=== PATIENT | female | born 1990 | race Hispanic/Latino ===

== ENCOUNTER 2019-12-14 11:17 | Emergency (ER) | payer SELFPAY ==
--- OUTSIDE RECORDS SUMMARY | 2019-12-14 11:19 | XMS REPORT ---
:1990 [facility] Address [address] [place] [address] [address]. [address]. [address] [place] [address] Care Team Providers Name Role Phone Unavailable Unavailable Unavailable Problems This patient has no known problems. Allergies, Adverse Reactions, Alerts This patient has no known allergies or adverse reactions. Medications This patient has no known medications.
--- OUTSIDE RECORDS SUMMARY | 2019-12-14 11:20 | XMS REPORT | Summary of Care ---
:1990 Author Organization [facility] Address [address] [place] [id number] Care Team Providers Name Role Phone Stacy Ceja Primary Care Provider Reason for Visit Reason Comments Care Encounter Details Date Type Department Care Team Description [facility] [facility] High-risk in third trimester (Primary Dx); Visit HANNAH Jacobo Multiparity; [address] Tubal ligation evaluation; [place], [place] Keith A Breech presentation, single or unspecified fetus [id number] [place], [place] [phone] [id number] Allergies No Known Allergiesdocumented as of this encounter (statuses as of 06/30/2019) Medications Medication Sig Dispensed Refills Start Date End Date Status vit Take 1 Packet by 30 Each 6 06/10/2019 Active 51-cqdm-xcpim-dha mouth daily. (SELECT-OB + DHA) 29 mg iron-1 mg -250 mg combo packIndications: High-risk in third trimester documented as of this encounter (statuses as of 06/30/2019) Active Problems Problem Noted Date Breech presentation 06/23/2019 Overview: At 35 weeks High-risk in third trimester 05/13/2019 Insufficient care in second trimester 05/13/2019 BMI 25.0-25.9,adult 05/13/2019 Multiparity 05/13/2019 Tubal ligation evaluation 05/13/2019 Estimated Date of Delivery Comments Yes 07/28/2019 Based on last menstrual period of 10/21/2018 (Exact Date) documented as of this encounter (statuses as of 06/30/2019) Resolved Problems Problem Noted Date Resolved Date Need for sjzxyqjgjk-eoxmixp-dsidkuqsg (Tdap) vaccine 05/13/2019 05/13/2019 documented as of this encounter (statuses as of 06/30/2019) Immunizations Name Administration Dates Next Due TDAP (ADACEL) VACCINE 05/13/2019 documented as of this encounter Social History Tobacco Use Types Packs/Day Years Used Date Never Smoker Smokeless Tobacco: Never Used Alcohol Use Drinks/Week oz/Week Comments Never Alcohol Habits Answer Date Recorded How often do you have a drink containing alcohol? Never 05/13/2019 How many drinks containing alcohol do you have on a typical Not asked day when you are drinking? How often do you have six or more drinks on one occasion? Not asked Estimated Date of Delivery Comments Yes 07/28/2019 Based on last menstrual period of 10/21/2018 (Exact Date) Sex Assigned at Date Recorded Not on file Job Start Date Occupation Industry Not on file Not on file Not on file Travel History Travel Start Travel End No recent travel history available. documented as of this encounter Last Filed Vital Signs Vital Sign Reading Time Taken Comments Blood Pressure 98/62 06/30/2019 9:43 AM CDT Pulse 62 06/30/2019 9:43 AM CDT Temperature 36.7 C (98.1 F) 06/30/2019 9:43 AM CDT Respiratory Rate 16 06/30/2019 9:43 AM CDT Oxygen Saturation - - Inhaled Oxygen Concentration - - Weight 60.1 kg (132 lb 9 oz) 06/30/2019 9:43 AM CDT Height 149.9 cm (4' 11") 06/30/2019 9:43 AM CDT Body Mass Index 26.77 06/30/2019 9:43 AM CDT documented in this encounter Progress Notes Stacy Ceja, PROJECT RESERVOIR ENGINEER - 06/30/2019 9:30 AM CDT Chief complaint: Chief Complaint Patient presents with Care HPI Dot Toro is a 29 year old female is a @ 36w0d here for visit. Patient's last menstrual period was 10/21/2018 (exact date). Estimated Date of Delivery: 07/28/19 Today she denies any complaints or concerns. She is taking PNV. She reports good FM. She denies any ctx/cramping, VB, LOF, SINGH , visual disturbance, vaginal discharge or dysuria. She denies any foreign travel. She also denies any physical, sexual or emotional abuse. Histories OB History Para Term AB Living 4 2 2 1 2 SAB TAB Ectopic Multiple Live Births 1 2 # Outcome Date GA Lbr [place]/2nd Weight Sex Delivery Anes PTL Lv 4 Current 3 Term 06/08/14 40w0d F VAGINAL FRANTZ 2 Term 06/01/10 40w0d F VAGINAL FRANTZ 1 SAB No past medical history on file. Family History Problem Relation Age of Onset No Significant Medical Problems Mother No Significant Medical Problems Father No Significant Medical Problems Sister No Significant Medical Problems Brother Diabetes Maternal Aunt Diabetes Maternal Uncle Diabetes Paternal Aunt Diabetes Paternal Uncle Cancer Maternal Grandmother Cancer Maternal Grandfather lung Family Status Relation Name Status Mo Alive Fa Alive Sis Alive Bro Alive MAunt Alive MUnc Alive PAunt Alive PUnc Alive MGMo MGFa PGMo PGFa No past surgical history on file. Social History Socioeconomic History Marital status: Spouse name: Not on file Number of children: Not on file Years of education: Not on file Highest education level: Not on file Occupational History Not on file Social Needs Financial resource strain: Not on file Food insecurity: Worry: Not on file Inability: Not on file Transportation needs: Medical: Not on file Non-medical: Not on file Tobacco Use Smoking status: Never Smoker Smokeless tobacco: Never Used Substance and Sexual Activity Alcohol use: Never Frequency: Never Drug use: Never Sexual activity: Yes Partners: Male control/protection: None Comment: last sexual intercourse 04/29/2019 Lifestyle Physical activity: Days per week: Not on file Minutes per session: Not on file Stress: Not on file Relationships Social connections: Talks on phone: Not on file Gets together: Not on file Attends sikh service: Not on file Active member of club or organization: Not on file Attends meetings of clubs or organizations: Not on file Relationship status: Not on file Intimate partner violence: Fear of current or ex partner: Not on file Emotionally abused: Not on file Physically abused: Not on file Forced sexual activity: Not on file Other Topics Concern Not on file Social History Narrative Rastafarian preference is Mandaen. Patient lives with and children. Social History Substance and Sexual Activity Sexual Activity Yes Partners: Male control/protection: None Comment: last sexual intercourse 04/29/2019 Labs I have reviewed the patient's labs. and Labs are pending. Radiology No new radiology. Allergies Dot has No Known Allergies. Medications Dot has a current medication list which includes the following prescription(s): vit 85-nxxs-qdtsf-dha. Review of Systems Constitutional: Negative for appetite change, fatigue and fever. Eyes: Negative for visual disturbance. Respiratory: Negative. Cardiovascular: Negative for palpitations and leg swelling. Gastrointestinal: Negative for abdominal pain, constipation, diarrhea, nausea and vomiting. Genitourinary: Negative. Negative for dysuria, vaginal bleeding, vaginal discharge and pelvic pain. Musculoskeletal: Negative. Skin: Negative for rash. Neurological: Negative for dizziness, light-headedness and headaches. Psychiatric/Behavioral: Negative. BP 98/62 (BP Location: Right arm, Patient Position: Sitting, BP CUFF SIZE: Adult Small) | Pulse 62| Temp 36.7 C (98.1 F) (Oral) | Resp 16 | Ht 4' 11 " (1.499 m) | Wt 132 lb 9 oz (60.1 kg) | LMP 10/21/2018 (Exact Date) | BMI 26.77 kg/m Pregravid BMI: 22.0 Physical Exam Vitals reviewed. Constitutional: She is oriented to person, place, and time. She appears well- developed and well-nourished. See flowsheet Cardiovascular: No peripheral edema present. Pulmonary/Chest: Normal inspiratory effort. Abdominal: Abdomen is soft. Neuro/Psychiatric: She has a normal mood and affect. She is oriented to person, place, and time. Skin: Skin normal. Assessment/Plan 1. High-risk in third trimester 36w0d Labor precautions, FKC and PIH warnings reviewed. 36 week labs today - GROUP B STREPTOCOCCUS BY PCR - CBC WITH DIFF - CBC WITH DIFFERENTIAL - POCT URINALYSIS W SPECIFIC GRAVITY 2. Multiparity Desires BTL 3. Tubal ligation evaluation Consents signed 05/13/19 4. Breech presentation, single or unspecified fetus Now vertex on external exam and by bedside US Will cancel scheduled ECV and continue to monitor presentation. Return to clinic in 1 weeks. Reviewed patient instructions and provided printed copy. at 36w0d This visit did not involve counseling and coordination that comprised more than 50% of the visit time. documented in this encounter Plan of Treatment Date Type Specialty Care Team Description 07/07/2019 Routine Visit [facility] Satellites Stacy Ceja FNP [address] [place] [address] [phone] Name Type Priority Associated Diagnoses Date/Time CBC WITH DIFF LAB Routine High-risk in 06/30/2019 9:47 AM CDT third trimester CBC WITH DIFFERENTIAL LAB Routine High-risk in 06/30/2019 9:47 AM CDT third trimester Health Maintenance Due Date Last Done Comments INFLUENZA VACCINE 07/24/2019 PAP SMEAR 05/13/2022 05/13/2019 DTaP,Tdap,and Td Vaccines (2 - Td) 05/13/2029 05/13/2019 PNEUMOCOCCAL 0-64 YEARS COMBINED Aged Out No longer eligible based on SERIES patient's age to complete this topic documented as of this encounter Procedures Procedure Name Priority Date/Time Associated Diagnosis Comments POCT URINALYSIS Routine 06/30/2019 9:46 AM High-risk Results for this CDT in third trimester procedure are in the results section. documented in this encounter Results POCT URINALYSIS W SPECIFIC GRAVITY (06/30/2019 9:46 AM CDT) POCT U SP GRAV . 1.005 - 1.025 mg/dl POCT PH U . 5 - 8 mg/dl POCT U LEUK EST . Negative - Negative POCT U NIT . Negative - Negative POCT U PROT neg Negative - Negative POCT U GLU neg Negative - Negative POCT U KETONE . Negative - Negative POCT U UROBILI . 0.2 - 1 mg/dl POCT U BILI . Negative - Negative POCT U BLD . Negative - Negative POCT U COLOR . POCT U APPEAR Specimen Urine - URINE, CLEAN CATCH documented in this encounter Visit Diagnoses Diagnosis High-risk in third trimester - Primary Multiparity Tubal ligation evaluation Other specified pre-operative examination Breech presentation, single or unspecified fetus documented in this encounter Insurance Payer Benefit Plan / Subscriber ID Effective Dates Phone Address Type Group [facility] CHIP [id number] 2019-Present [facility] [phone] CHOICE documented as of this encounter
--- OUTSIDE RECORDS SUMMARY | 2019-12-14 11:20 | XMS REPORT | Summary of Care ---
:1990 Author Organization [facility] Address [address] [place] [id number] Care Team Providers Name Role Phone Stacy Ceja Primary Care Provider Reason for Visit Reason Comments Care Encounter Details Date Type Department Care Team Description [facility] High-risk in third trimester (Primary Dx); Visit HANNAH Jacobo Multiparity; [address] Tubal ligation evaluation [facility] [address] [place], [place] [phone] Allergies No Known Allergiesdocumented as of this encounter (statuses as of 07/07/2019) Medications Medication Sig Dispensed Refills Start Date End Date Status vit Take 1 Packet by 30 Each 6 06/10/2019 Active 98-xipm-sjacm-dha mouth daily. (SELECT-OB + DHA) 29 mg iron-1 mg -250 mg combo packIndications: High-risk in third trimester documented as of this encounter (statuses as of 07/07/2019) Active Problems Problem Noted Date Breech presentation 06/23/2019 Overview: At 35 weeks, vertex at 36 weeks High-risk in third trimester 05/13/2019 Insufficient care in second trimester 05/13/2019 BMI 25.0-25.9,adult 05/13/2019 Multiparity 05/13/2019 Tubal ligation evaluation 05/13/2019 Estimated Date of Delivery Comments Yes 07/28/2019 Based on last menstrual period of 10/21/2018 (Exact Date) documented as of this encounter (statuses as of 07/07/2019) Resolved Problems Problem Noted Date Resolved Date Need for tlebloqgss-qcschxu-suxjnhzju (Tdap) vaccine 05/13/2019 05/13/2019 documented as of this encounter (statuses as of 07/07/2019) Immunizations Name Administration Dates Next Due TDAP [...] Sign Reading Time Taken Comments Blood Pressure 92/58 07/07/2019 11:02 AM CDT Pulse 66 07/07/2019 11:02 AM CDT Temperature 36.9 C (98.5 F) 07/07/2019 11:02 AM CDT Respiratory Rate 16 07/07/2019 11:02 AM CDT Oxygen Saturation - - Inhaled Oxygen Concentration - - Weight 61.4 kg (135 lb 6 oz) 07/07/2019 11:02 AM CDT Height 149.9 cm (4' 11") 07/07/2019 11:02 AM CDT Body Mass Index 27.34 07/07/2019 11:02 AM CDT documented in this encounter Progress Notes Stacy Ceja, FOOD SERVICE ATTENDANT - 07/07/2019 10:45 AM CDT Chief complaint: Chief Complaint Patient presents with Care HPI Dot Toro is a 29 year old female is a @ 37w0d here for visit. Patient's last menstrual period [...] file Gets together: Not on file Attends temple service: Not on file Active member of [...] Concern Not on file Social History Narrative Bahai preference is Nondenominational. Patient lives with and children. Social History Substance and Sexual Activity Sexual Activity Yes Partners: Male control/protection: None Comment: last sexual intercourse 04/29/2019 Labs No new labs and I have reviewed the patient's labs. Radiology No new radiology. Allergies Dot has No Known Allergies. Medications Dot has a current medication list which includes the following prescription(s): vit 99-hhyv-nfxov-dha. Review of Systems Constitutional: Negative for appetite change, fatigue and fever. Eyes: Negative for visual disturbance. Respiratory: Negative. Cardiovascular: Negative for palpitations and leg swelling. Gastrointestinal: Negative for abdominal pain, constipation, diarrhea, nausea and vomiting. Genitourinary: Negative. Negative for dysuria, vaginal bleeding, vaginal discharge and pelvic pain. Musculoskeletal: Negative. Skin: Negative for rash. Neurological: Negative for dizziness, light-headedness and headaches. Psychiatric/Behavioral: Negative. BP 92/58 (BP Location: Right arm, Patient Position: Sitting, BP CUFF SIZE: Adult Small) | Pulse 66| Temp 36.9 C (98.5 F) (Oral) | Resp 16 | Ht 4' 11 " (1.499 m) | Wt 135 lb 6 oz (61.4 kg) | LMP 10/21/2018 (Exact Date) | BMI 27.34 kg/m Pregravid BMI: 22.0 Physical Exam Vitals reviewed. Constitutional: She is oriented to person, place, and time. She appears well- developed and well-nourished. See flowsheet Cardiovascular: No peripheral edema present. Pulmonary/Chest: Normal inspiratory effort. Abdominal: Abdomen is soft. Neuro/Psychiatric: She has a normal mood and affect. She is oriented to person, place, and time. Skin: Skin normal. Assessment/Plan 1. High-risk in third trimester 37w0d Labor precautions, FKC and PIH warnings reviewed. 40w IOL requested for 07/28/19 - POCT URINALYSIS W SPECIFIC GRAVITY 2. Multiparity Desires BTL 3. Tubal ligation evaluation Consents signed 05/13/19 Return to clinic in 1 weeks. Reviewed patient instructions and provided printed copy. at 37w0d This visit did not involve counseling and coordination that comprised more than 50% of the visit time. documented in this encounter Plan of Treatment Date Type Specialty Care Team Description 07/14/2019 Routine Visit OB Satellites Stacy Ceja, FOOD SERVICE ATTENDANT [address] [place] [address] [phone] Health Maintenance Due Date Last Done Comments INFLUENZA VACCINE (#1) 2019 PAP SMEAR 05/13/2022 05/13/2019 DTaP,Tdap,and Td Vaccines (2 - Td) 05/13/2029 05/13/2019 PNEUMOCOCCAL 0-64 YEARS COMBINED Aged Out No longer eligible based on SERIES patient's age to complete this topic documented as of this encounter Procedures Procedure Name Priority Date/Time Associated Diagnosis Comments POCT URINALYSIS Routine 07/07/2019 11:04 AM High-risk Results for this CDT in third trimester procedure are in the results section. documented in this encounter Results POCT URINALYSIS W SPECIFIC GRAVITY (07/07/2019 11:04 AM CDT) POCT U SP GRAV . [...] . Negative - Negative POCT U COLOR POCT U APPEAR Specimen Urine - URINE, CLEAN CATCH documented in this encounter Visit Diagnoses Diagnosis High-risk in third trimester - Primary Multiparity Tubal ligation evaluation Other specified pre-operative examination documented in this encounter Insurance Payer Benefit Plan / Subscriber ID Effective Dates Phone Address Type Group [facility] [facility] [id number] 2019-Present [facility] [phone] CHOICE documented as of this encounter
--- OUTSIDE RECORDS SUMMARY | 2019-12-14 11:20 | XMS REPORT | Summary of Care ---
:1990 Author Organization [facility] Address [address] [place] [address] Care Team Providers Name Role Phone Stacy Ceja Primary Care Provider Reason for Visit Reason Comments Care Encounter Details Date Type Department Care Team Description [facility] High-risk in third trimester (Primary Dx); Visit HANNAH Jacobo Insufficient care in second trimester; [address] Multiparity; [place], [place] Keith A Tubal ligation evaluation; [address] [place], [place] Breech presentation, single or unspecified fetus [phone] Allergies No Known Allergiesdocumented as of this encounter (statuses as of 06/23/2019) Medications Medication Sig Dispensed Refills Start Date End Date Status vit Take 1 Packet by 30 Each 6 06/10/2019 Active 53-skay-eauek-dha mouth daily. (SELECT-OB + DHA) 29 mg iron-1 mg -250 mg combo packIndications: High-risk in third trimester documented as of this encounter (statuses as of 06/23/2019) Active Problems Problem Noted Date Breech presentation 06/23/2019 Overview: At 35 weeks High-risk in third trimester 05/13/2019 Insufficient care in second trimester 05/13/2019 BMI 25.0-25.9,adult 05/13/2019 Multiparity 05/13/2019 Tubal ligation evaluation 05/13/2019 Estimated Date of Delivery Comments Yes 07/28/2019 Based on last menstrual period of 10/21/2018 (Exact Date) documented as of this encounter (statuses as of 06/23/2019) Resolved Problems Problem Noted Date Resolved Date Need for layfirpldf-ubzirat-ikxhrmcwg (Tdap) vaccine 05/13/2019 05/13/2019 documented as of this encounter (statuses as of 06/23/2019) Immunizations Name Administration Dates Next Due TDAP [...] Sign Reading Time Taken Comments Blood Pressure 110/68 06/23/2019 9:23 AM CDT Pulse 62 06/23/2019 9:23 AM CDT Temperature 37.1 C (98.8 F) 06/23/2019 9:23 AM CDT Respiratory Rate 18 06/23/2019 9:23 AM CDT Oxygen Saturation - - Inhaled Oxygen Concentration - - Weight 60.1 kg (132 lb 7 oz) 06/23/2019 9:23 AM CDT Height 149.9 cm (4' 11") 06/23/2019 9:23 AM CDT Body Mass Index 26.75 06/23/2019 9:23 AM CDT documented in this encounter Patient Instructions Patient InstructionsStacy Ceja FNP - 06/23/2019 9:15 AM CDT Presentacin de nalgas Si hay presentacin de nalgas, significa que tompkins beb tiene los glteos o los pies hacia abajo, cuando la posicin normal es con la noel hacia abajo. Selnia presentacin de nalgas puede hacer difcil que la noel del beb pase por el canal de parto simon el nacimiento. [place] puede ocasionar falta de oxgeno o ivory en los nervios del beb. Undercutter Operator determinar si el beb se presenta de nalgas? Tompkins mdico puede jersey si tompkins beb se presenta de nalgas presionando suavemente tompkins abdomen. Si, despus de la semana 35, tompkins beb no est todava de noel, puede que le delfin selina prueba llamada ultrasonido (ecografa). Esta prueba emplea ondas de shiva para formar selina imagen de tompkins beb en selina pantalla. Tipos de presentacin de nalgas A medida que se va acercando la fecha de parto, tompkins beb puede presentarse de nalgas en selina de las timbo posiciones siguientes: Liza de nalgas Los glteos del beb apuntan hacia el canal de parto. Las piernas se extienden hacia la noel. De nalgas completa El beb est sentado con las piernas cruzadas. Los glteos apuntan hacia abajo y las rodillas estn flexionadas. Tiene los pies metidos debajo de las piernas. Podlica El beb tiene taisha o ambos pies o piernas estirados dentro del canal de parto. Los glteos tambinapuntan hacia abajo. El nacimiento de tompkins beb Incluso si la posicin del beb no puede cambiarse, un beb que se presenta de nalgas en ocasiones puede nacer mediante parto vaginal aunque es poco frecuente. Tompkins mdico le hablar de los riesgos.Es ms frecuente que, en un hamilton as, se rj selina cesrea (parto mediante ciruga). Le administrarn anestesia (medicamento para bloquear el dolor). Sean usted permanecer despierta y alerta. Selina vez que haya nacido el beb Ya sea que haya tenido un parto vaginal o selina cesrea, seguramente, usted y tompkins beb estarn manolo.El solo hecho de que tompkins beb se presente de nalgas no significa que tendr problemas de dayron. Puede tener un parto vaginal? En algunos casos, es posible que tompkins mdico intente chris vuelta al beb para que quede noel abajo aplicando presin sobre tompkins abdomen. Esta tcnica se denomina versin ceflica externa. Si esta maniobra funciona, felecia vez usted pueda tener un parto vaginal. Tompkins mdico conversar sobre esto con usted. Date Last Reviewed: 04/23/201619995920-3719 [employer]. [address] [place] [address]. Todos los derechos reservados. Esta informacin no pretende sustituir la atencin mdica profesional. Slo tompkins mdico puede diagnosticar y tratar un problema de dayron. Si tompkins beb se presenta de nalgas: Versin ceflica externa (VCE) Hacia el final del embarazo, la mayora de los bebs se mueven hacia la posicin de noel abajo. Sean, en algunos casos, el beb se presenta de nalgas. [place] quiere decir que las nalgas o lospies estn colocados para salir celio. Selina posicin de nalgas dificulta el alumbramiento por va vaginal. Si tompkins beb est en posicin de nalgas, es posible que tompkins proveedor de atenci n mdica trate de girar al beb de manera que le quede la noel hacia abajo. Stormy procedimiento se denomina versin ceflica externa (ECV, por serenity siglas en ingls). Selina ECV puede realizarse si usted est entre lassemana 36 a 38 de embarazo (cerca del trmino completo) a no ser que existan razones para no hacerla. Si la ECV tiene xito, es ms probable que haya un parto vaginal. Antes del procedimiento Stormy procedimiento por lo general se hace en un hospital. Siga cualquier instruccin que le hayan dado acerca de no comer ni beber antes del procedimiento. Antes de la ECV, el equipo de atencin la conectar a un monitor . [place] se hace para revisar el bienestar del beb simon el procedimiento. Es posible que tambin necesite las siguientes pruebas: Ecografa Esta puede hacerse para: Confirmar que el beb est en posicin de nalgas. Averiguar cunto lquido amnitico hay en el tero. Confirmar dnde est la placenta. Encontrar o descartar defectos de nacimiento (anomalas congnitas). [place] si el cordn umbilical est alrededor del marquise del beb. [place] se llama cordn nucal. Prueba sin esfuerzo y perfil biofsico Estas pruebas revisan el corazn del beb, tompkins bienestar y el patrn de las contracciones. Selina de estas pruebas o ambas pueden hacerse antes y despus de la ECV. Anlisis de mayra Se darien selina muestra de mayra para averiguar el tipo de mayra, examinarla y hacer un conteo completo de clulas sanguneas (hemograma) en hamilton de que ocurra selina emergencia. Simon el procedimiento Usted estar conectada al monitor . [place] se hace para controlar el bienestar del beb simon el procedimiento. Pueden ponerle selina lnea intravenosa en tompkins brazo para administrarle l quidos y medicamentos, sies necesario. El equipo puede administrarle un medicamento para relajar tompkins tero. Stormy medicamento le facilitaal proveedor de atencin mdica rotar al beb. La colocarn en selina posicin especial en la cama del hospital. El proveedor pondr serenity maverick en ciertos puntos de la parte inferior de tompkins vientre, sobre tompkins tero. El proveedor tratar de empujar al beb a la posicin de noel abajo. [place] se realiza tratando de que el beb rj selina rotacin en movimiento lento hacia adelante o hacia atrs.Usted sentir algo de presin simon esta parte del procedimiento. Selina vez que se termine el procedimiento, el equipo de atencin levantar la cabecera de tompkins cama. [place] ayudar a que el beb coloque tompkins noel hacia abajo. Cambio de la posicin del beb Celio tompkins proveedor de atencin mdica le presionar el vientre y localizar la noel y las nalgas del beb. Luego, al presionarle el vientre, es posible que tompkins proveedor de atencin m dica pueda cambiar la posicin del sherri a la de noel abajo. [place] por lo general permitir el parto vaginal. Despus del procedimiento Usted seguir conectada al monitor . [place] se hace para controlar el bienestar del beb. Tambin controla si hay contracciones, lo cual puede ocurrir despus de selina ECV. Usted ser monitoreada simon incluso dos horas despus de la ECV, o kishor lo indique tompkins proveedor de atencin mdica. Si usted es Rh negativa, tompkins proveedor de atencin mdica podra ordenar selina inyeccin de inmunoglobulina Rh. [place] se hace para prevenir selina respuesta del sistema inmunitario (sensibilizacin alRh) que puede causar problemas en futuros embarazos. Tambin se hace para prevenir selina afeccin (hemorragia fetomaterna) que puede causar complicaciones si la mayra del beb entra en tompkins torrente sanguneo antes del parto o simon tompkins transcurso. Selina vez que est en tompkins casa, siga todas las instrucciones que le d tompkins proveedor de atencin mdica en cuanto a comer o beber despus del procedimiento. Siga todas las instrucciones de ellen especficas de tompkins proveedor de atenci n mdica. Visitas de control Tompkins proveedor de atencin mdica puede pedirle que programe citas ms frecuentes para revisar la posicin del beb. Siga las instrucciones de tompkins proveedor de atencin mdica. Cundo debe llamar a tompkins proveedor de atencin mdica Llame a tompkins proveedor de atencin mdica si ocurre algo de lo siguiente: Tiene ms contracciones. Hay lquido o mayra goteando de tompkins vagina. Tompkins beb se est moviendo menos. Tiene otros signos o sntomas especficos que le haya indicado tompkins proveedor de atencin mdica. Tiene un sangrado vaginal significativo El nacimiento de tompkins beb Incluso si no puede cambiarse la posicin de tompkins beb, es posible que pueda tener un parto vaginal.El tipo de parto que tenga depender de la experiencia de tompkins proveedor de atencin mdica. La mayora prefiere realizar selina hang maegan o un parto quirrgico para un beb en posicin de nalgas. [place] se debe a que lo ms importante es la seguridad y el bienestar tanto suyos kishor de tompkins beb. Si lehacen selina cesrea, le pondrn medicamentos para bloquear el dolor (anestesia). Sean, por lo general, usted estar despierta y alerta. Date Last Reviewed: 08/03/[id number] [employer]. [address] [place] [address], [place] [address]. Todos los derechos reservados. Esta informacin no pretende sustituir la atencin mdica profesional. Slo tompkins mdico puede diagnosticar y tratar un problema de dayron. documented in this encounter Progress Notes Stacy Ceja FNP - 06/23/2019 9:15 AM CDT Chief complaint: Chief Complaint Patient presents with Care HPI Dot Toro is a 28 year old female is a @ 35w0d here for visit. Patient's last menstrual period [...] file Gets together: Not on file Attends jehovah's witness service: Not on file Active member of [...] Concern Not on file Social History Narrative Methodist preference is Zoroastrian. Patient lives with and children. Social History Substance and Sexual Activity Sexual Activity Yes Partners: Male control/protection: None Comment: last sexual intercourse 04/29/2019 Labs No new labs and I have reviewed the patient's labs. Radiology I have reviewed the patient's radiology. anatomy scan today WNL, breech presentation, girl Allergies Dot has No Known Allergies. Medications Dot has a current medication list which includes the following prescription(s): vit 56-txuh-rzvlb-dha. Review of Systems Constitutional: Negative for appetite change, fatigue and fever. Eyes: Negative for visual disturbance. Respiratory: Negative. Cardiovascular: Negative for palpitations and leg swelling. Gastrointestinal: Negative for abdominal pain, constipation, diarrhea, nausea and vomiting. Genitourinary: Negative. Negative for dysuria, vaginal bleeding, vaginal discharge and pelvic pain. Musculoskeletal: Negative. Skin: Negative for rash. Neurological: Negative for dizziness, light-headedness and headaches. Psychiatric/Behavioral: Negative. BP 110/68 (BP Location: Right arm, Patient Position: Sitting, BP CUFF SIZE: Adult Small) | Pulse 62 | Temp 37.1 C (98.8 F) (Oral) | Resp 18 | Ht 4' 11" (1.499 m) | Wt 132 lb 7 oz (60.1 kg) | LMP 10/21/2018 (Exact Date) | BMI 26.75 kg/m Pregravid BMI: 22.0 Physical Exam Vitals reviewed. Constitutional: She is oriented to person, place, and time. She appears well- developed and well-nourished. See flowsheet Cardiovascular: No peripheral edema present. Pulmonary/Chest: Normal inspiratory effort. Abdominal: Abdomen is soft. Neuro/Psychiatric: She has a normal mood and affect. She is oriented to person, place, and time. Skin: Skin normal. Assessment/Plan 1. High-risk in third trimester 35w0d Labor precautions, FKC and PIH warnings reviewed. 36 week labs next visit - POCT URINALYSIS W SPECIFIC GRAVITY; Standing - POCT URINALYSIS W SPECIFIC GRAVITY - GROUP B STREPTOCOCCUS BY PCR; Future - CBC WITH DIFF; Future 2. Insufficient care in second trimester 3. Multiparity Desires BTL 4. Tubal ligation evaluation Consents signed 05/13/19 5. Breech presentation, single or unspecified fetus Reviewed breech presentation, recommendations for exercises and tips to try to turn baby, appointment requested for 37 week version if still breech at that time. Reviewed need for primary if baby unable to be vertex. Return to clinic in 1 weeks. Discussed treatment options. Reviewed patient instructions and provided printed copy. at 35w0d This visit did not involve counseling and coordination that comprised more than 50% of the visit time. documented in this encounter Plan of Treatment Date Type Specialty Care Team Description 06/30/2019 Routine Visit [facility] Stacy Ceja FNP [address] [place] [address] [phone] Name Type Priority Associated Diagnoses Order Schedule POCT URINALYSIS W SPECIFIC LAB Routine High-risk in 20 Occurrences starting GRAVITY third trimester 06/23/2019 until 04/18/2020, 1 completed GROUP B STREPTOCOCCUS BY LAB Routine High-risk in Expected: 06/30, PCR third trimester Expires: 07/24/2019 CBC WITH DIFF LAB Routine High-risk in Expected: 06/30/2019, third trimester Expires: 07/24/2019 Health Maintenance Due Date Last Done Comments INFLUENZA VACCINE 07/24/2019 PAP SMEAR 05/13/2022 05/13/2019 DTaP,Tdap,and Td Vaccines (2 - Td) 05/13/2029 05/13/2019 PNEUMOCOCCAL 0-64 YEARS COMBINED Aged Out No longer eligible based on SERIES patient's age to complete this topic documented as of this encounter Procedures Procedure Name Priority Date/Time Associated Diagnosis Comments POCT URINALYSIS Routine 06/23/2019 9:28 AM High-risk Results for this CDT in third trimester procedure are in the results section. documented in this encounter Results POCT URINALYSIS W SPECIFIC GRAVITY (06/23/2019 9:28 AM CDT) POCT U SP GRAV . 1.005 - 1.025 mg/dl POCT PH U . 5 - 8 mg/dl POCT U LEUK EST . Negative - Negative POCT U NIT . Negative - Negative POCT U PROT trace Negative - Negative POCT U GLU neg [...] Diagnosis High-risk in third trimester - Primary Insufficient care in second trimester Multiparity Tubal ligation evaluation Other specified pre-operative examination Breech presentation, single or unspecified fetus documented in this encounter Insurance Payer Benefit Plan / Subscriber ID Effective Dates Phone Address Type Group CHIP [facility] [id number] 2019-Present CHIP [facility] [phone] [employer] CHOICE documented as of this encounter
--- OUTSIDE RECORDS SUMMARY | 2019-12-14 11:20 | XMS REPORT | Summary of Care ---
:1990 Author Organization [facility] Address [address] [place] [address] Care Team Providers Name Role Phone Stacy Ceja Primary Care Provider Reason for Visit Reason Comments Care Encounter Details Date Type Department Care Team Description [facility] High-risk in third trimester (Primary Dx); Visit HANNAH Jacobo Multiparity; [address] Tubal ligation evaluation; [place], [place] Keith A Breech presentation, single or unspecified fetus [address] [place], [place] [phone] [address] Allergies No Known Allergiesdocumented as of this encounter (statuses as of 06/30/2019) Medications Medication Sig Dispensed Refills Start Date End Date Status vit Take 1 Packet by 30 Each 6 06/10/2019 Active 79-ldzu-njcry-dha mouth daily. (SELECT-OB + DHA) 29 mg [...] Problem Noted Date Resolved Date Need for zsvknyzgip-vaunuim-qxfdnxdfx (Tdap) vaccine 05/13/2019 05/13/2019 documented as of [...] in this encounter Progress Notes Stacy Ceja, SUPERVISOR METAL FABRICATING - 06/30/2019 9:30 AM CDT Chief complaint: [...] file Gets together: Not on file Attends holiness service: Not on file Active member of [...] Concern Not on file Social History Narrative Denominational preference is Anglican. Patient lives with and children. Social History Substance and Sexual Activity Sexual Activity Yes Partners: Male control/protection: None Comment: last sexual intercourse 04/29/2019 Labs I have reviewed the patient's labs. and Labs are pending. Radiology No new radiology. Allergies Dot has No Known Allergies. Medications Dot has a current medication list which includes the following prescription(s): vit 52-btdo-ntall-dha. Review of Systems Constitutional: Negative for appetite [...] documented in this encounter Plan of Treatment Name Type Priority Associated Diagnoses Date/Time CBC [...] Dates Phone Address Type Group CHIP [facility]EL[facility] CHIP [id number] 2019-Present CHIP Jenelle [facility] [phone] FPL CHOICE documented as of this encounter
--- OUTSIDE RECORDS SUMMARY | 2019-12-14 11:20 | XMS REPORT | Summary of Care ---
:1990 Author Organization [facility] Address [address] [place] [address] Care Team Providers Name Role Phone Stacy Ceja Primary Care Provider Reason for Visit Reason Comments Care Encounter Details Date Type Department Care Team Description [facility] [facility] High-risk in third trimester (Primary Dx); Visit HANNAH Jacobo Multiparity; [address] Tubal ligation evaluation [facility] A [address] [place], [place] [phone] Allergies No Known Allergiesdocumented as of this encounter (statuses as of 07/14/2019) Medications Medication Sig Dispensed Refills Start Date End Date Status vit Take 1 Packet by 30 Each 6 06/10/2019 Active 24-rhwb-npmsp-dha mouth daily. (SELECT-OB + DHA) 29 mg iron-1 mg -250 mg combo packIndications: High-risk in third trimester documented as of this encounter (statuses as of 07/14/2019) Active Problems Problem Noted Date Breech presentation 06/23/2019 Overview: At 35 weeks, vertex at 36 weeks High-risk in third trimester 05/13/2019 Insufficient care in second trimester 05/13/2019 BMI 25.0-25.9,adult 05/13/2019 Multiparity 05/13/2019 Tubal ligation evaluation 05/13/2019 Estimated Date of Delivery Comments Yes 07/28/2019 Based on last menstrual period of 10/21/2018 (Exact Date) documented as of this encounter (statuses as of 07/14/2019) Resolved Problems Problem Noted Date Resolved Date Need for czgsnrcuwm-vupafzo-nxnmtuvsq (Tdap) vaccine 05/13/2019 05/13/2019 documented as of this encounter (statuses as of 07/14/2019) Immunizations Name Administration Dates Next Due TDAP [...] Sign Reading Time Taken Comments Blood Pressure 97/64 07/14/2019 10:35 AM CDT Pulse 85 07/14/2019 10:35 AM CDT Temperature 36.7 C (98.1 F) 07/14/2019 10:35 AM CDT Respiratory Rate 16 07/14/2019 10:35 AM CDT Oxygen Saturation - - Inhaled Oxygen Concentration - - Weight 62.6 kg (138 lb) 07/14/2019 10:35 AM CDT Height 149.9 cm (4' 11") 07/14/2019 10:35 AM CDT Body Mass Index 27.87 07/14/2019 10:35 AM CDT documented in this encounter Progress Notes Stacy Ceja, REGIONAL EDUCATION MANAGER - 07/14/2019 10:15 AM CDT Chief complaint: Chief Complaint Patient presents with Care HPI Dot Toro is a 29 year old female is a @ 38w0d here for visit. Patient's last menstrual period [...] file Gets together: Not on file Attends religion service: Not on file Active member of [...] Concern Not on file Social History Narrative Synagogue preference is Rastafarian. Patient lives with and children. Social History Substance and Sexual Activity Sexual Activity Yes Partners: Male control/protection: None Comment: last sexual intercourse 04/29/2019 Labs No new labs and I have reviewed the patient's labs. Radiology No new radiology. Allergies Dot has No Known Allergies. Medications Dot has a current medication list which includes the following prescription(s): vit 76-xrrs-acgrp-dha. Review of Systems Constitutional: Negative for appetite change, fatigue and fever. Eyes: Negative for visual disturbance. Respiratory: Negative. Cardiovascular: Negative for palpitations and leg swelling. Gastrointestinal: Negative for abdominal pain, constipation, diarrhea, nausea and vomiting. Genitourinary: Negative. Negative for dysuria, vaginal bleeding, vaginal discharge and pelvic pain. Musculoskeletal: Negative. Skin: Negative for rash. Neurological: Negative for dizziness, light-headedness and headaches. Psychiatric/Behavioral: Negative. BP 97/64 (BP Location: Right arm, Patient Position: Sitting, BP CUFF SIZE: Adult Small) | Pulse 85| Temp 36.7 C (98.1 F) (Oral) | Resp 16 | Ht 4' 11 " (1.499 m) | Wt 138 lb (62.6 kg) | LMP 10/21/2018 (Exact Date) | BMI 27.87 kg/m Pregravid BMI: 22.0 Physical Exam Vitals reviewed. Constitutional: She is oriented to person, place, and time. She appears well- developed and well-nourished. See flowsheet Cardiovascular: No peripheral edema present. Pulmonary/Chest: Normal inspiratory effort. Abdominal: Abdomen is soft. Neuro/Psychiatric: She has a normal mood and affect. She is oriented to person, place, and time. Skin: Skin normal. Assessment/Plan 1. High-risk in third trimester 38w0d Labor precautions, FKC and PIH warnings reviewed. 40w IOL scheduled for 07/28/19, instructions given - POCT URINALYSIS W SPECIFIC GRAVITY 2. Multiparity Desires BTL 3. Tubal ligation evaluation Consents signed 05/13/19 Return to clinic in 1 weeks. Reviewed patient instructions and provided printed copy. at 38w0d This visit did not involve counseling and coordination that comprised more than 50% of the visit time. documented in this encounter Plan of Treatment Date Type Specialty Care Team Description 07/21/2019 Routine Visit [facility] Marcial Stacy Kyree, REGIONAL EDUCATION MANAGER [address] [place] [address] [phone] Health Maintenance Due Date Last Done Comments INFLUENZA VACCINE (#1) 2019 PAP SMEAR 05/13/2022 05/13/2019 DTaP,Tdap,and Td Vaccines (2 - Td) 05/13/2029 05/13/2019 PNEUMOCOCCAL 0-64 YEARS COMBINED Aged Out No longer eligible based on SERIES patient's age to complete this topic documented as of this encounter Procedures Procedure Name Priority Date/Time Associated Diagnosis Comments POCT URINALYSIS Routine 07/14/2019 10:36 AM High-risk Results for this CDT in third trimester procedure are in the results section. documented in this encounter Results POCT URINALYSIS W SPECIFIC GRAVITY (07/14/2019 10:36 AM CDT) POCT U SP GRAV . [...] Type Group CHIP JENELLE [facility] CHIP [id number] 2019-Present [facility]IP [facility] [phone] CHOICE documented as of this encounter
--- OUTSIDE RECORDS SUMMARY | 2019-12-14 11:20 | XMS REPORT | Summary of Care ---
:1990 Author Organization [facility] - [facility] Address [address] [place] [id number] Care Team Providers Name Role Phone Stacy Ceja Primary Care Provider Reason for Visit Reason Comments ULTRASOUND (Routine) Status Reason Specialty Diagnoses / Referred By Referred To Procedures Contact Contact Authorized Maternal Diagnoses High-risk in third trimester Insufficient care in second trimester Stacy Ceja Medicine Procedures CONSULT MATERNAL MEDICINE ULTRASOUND Preferred Location: HANNAH Jacobo [address] [facility] [place] [address] Encounter Details Date Type Department Care Team Description 06/23/2019 Director Auto Visit [facility] [place], Encounter for Ultrasound- Criss Reilly MD screening [address] for malformation using [place], [place] [id number] ultrasound [id number] [place], [place] [phone] Allergies No Known Allergiesdocumented as of this encounter (statuses as of 06/23/2019) Medications Medication Sig Dispensed Refills Start Date End Date Status vit Take 1 Packet by 30 Each 6 06/10/2019 Active 55-ukwn-qbrjl-dha mouth daily. (SELECT-OB + DHA) 29 mg iron-1 mg -250 mg combo packIndications: High-risk in third trimester documented as of this encounter (statuses as of 06/23/2019) Active Problems Problem Noted Date High-risk in third trimester 05/13/2019 Insufficient care in second trimester 05/13/2019 BMI 25.0-25.9,adult 05/13/2019 Multiparity 05/13/2019 Tubal ligation evaluation 05/13/2019 Estimated Date of Delivery Comments Yes 07/28/2019 Based on last menstrual period of 10/21/2018 (Exact Date) documented as of this encounter (statuses as of 06/23/2019) Resolved Problems Problem Noted Date Resolved Date Need for kshvibsinw-frsiioz-qzdasdfih (Tdap) vaccine 05/13/2019 05/13/2019 documented as of [...] of this encounter Last Filed Vital Signs Not on filedocumented in this encounter Plan of Treatment Date Type Specialty Care Team Description 06/24/2019 Routine Visit OB Satellites Stacy Ceja, LADLE POURER [address] [facility] [place] [address] [phone] Health Maintenance Due Date Last Done Comments INFLUENZA VACCINE 07/24/2019 PAP SMEAR 05/13/2022 05/13/2019 DTaP,Tdap,and Td Vaccines (2 - Td) 05/13/2029 05/13/2019 PNEUMOCOCCAL 0-64 YEARS COMBINED Aged Out No longer eligible based on SERIES patient's age to complete this topic documented as of this encounter Results Not on filedocumented in this encounter Visit Diagnoses Diagnosis Encounter for screening for malformation using ultrasound documented in this encounter Insurance Payer Benefit Plan / Subscriber ID Effective Dates Phone Address Type Group [employer] [id number] 2019-Present [employer] [facility] [phone] CHOICE documented as of this encounter
--- OUTSIDE RECORDS SUMMARY | 2019-12-14 11:21 | XMS REPORT | Summary of Care ---
:1990 Author Organization [facility] Address [address] [place] [id number] Care Team Providers Name Role Phone Stacy Ceja Primary Care Provider Reason for Visit Reason Comments Care 3WK (Routine) Status Reason Specialty Diagnoses / Referred By Referred To Procedures Contact Contact New Request OB Satellites Diagnoses High-risk in third trimester Insufficient care in third trimester BMI 25.0-25.9,adult Multiparity Tubal ligation evaluation 38 weeks gestation of Labor and delivery, indication for care Oneyda Aguila FNP (spontaneous vaginal delivery) Single live [address] Procedures DISCHARGE FOLLOW-UP: [facility] [place] [address] Encounter Details Date Type Department Care Team Description 08/10/2019 Routine [facility] RMP- Dali Mohamud, WHCNP [address] [place] [address] care and Visit Stacy Kwon FNP [address] [place] [address] examination (Primary [address] [place]) [place] [address] Allergies No Known Allergiesdocumented as of this encounter (statuses as of 08/10/2019) Medications Medication Sig Dispensed Refills Start Date End Date Status docusate calcium 240 Take 1 capsule by 60 capsule 1 07/21/2019 Active mg mouth once daily capsuleIndications: as needed for Multiparity, 38 weeks Constipation. gestation of , (spontaneous vaginal delivery) ibuprofen 600 mg Take 1 tablet by 60 tablet 1 07/21/2019 Active tabletIndications: mouth every 6 Multiparity, 38 weeks (six) hours as gestation of needed for Pain , (scale 1-3) or (spontaneous vaginal Pain (scale 4-6) delivery) (Pain). Take with food or milk. Iron Fum & P-FA-Vit B Take 1 capsule by 30 capsule 2 07/21/2019 Active & C No.9 (INTEGRA mouth daily. PLUS) 125 mg iron- 1 mg CapIndications: Multiparity, 38 weeks gestation of , (spontaneous vaginal delivery) SELECT-OB + DHA 29 mg TAKE 1 TABKET AND 6 07/15/2019 Active iron-1 mg -250 mg 1 CAPSULE BY MOUTH combo pack ONCE DAILY documented as of this encounter (statuses as of 08/10/2019) Active Problems Problem Noted Date BMI 25.0-25.9,adult 05/13/2019 Multiparity 05/13/2019 documented as of this encounter (statuses as of 08/10/2019) Resolved Problems Problem Noted Date Resolved Date (spontaneous vaginal delivery) 07/21/2019 08/10/2019 Single live 07/21/2019 08/10/2019 38 weeks gestation of 07/20/2019 08/10/2019 Labor and delivery, indication for care 07/20/2019 08/10/2019 Breech presentation 06/23/2019 08/10/2019 Overview: At 35 weeks, vertex at 36 weeks High-risk in third trimester 05/13/2019 08/10/2019 Insufficient care in third trimester 05/13/2019 08/10/2019 Need for ggigwqmjtt-izkqwpz-rvkmtqfcg (Tdap) vaccine 05/13/2019 05/13/2019 Tubal ligation evaluation 05/13/2019 08/10/2019 documented as of this encounter (statuses as of 08/10/2019) Immunizations Name Administration Dates Next Due TDAP [...] more drinks on one occasion? Not asked Sex Assigned at Date Recorded Not on file Job Start Date Occupation Industry Not on file Not on file Not on file Travel History Travel Start Travel End No recent travel history available. documented as of this encounter Last Filed Vital Signs Vital Sign Reading Time Taken Comments Blood Pressure 103/71 08/10/2019 9:28 AM CDT Pulse 63 08/10/2019 9:28 AM CDT Temperature 36.3 C (97.4 F) 08/10/2019 9:28 AM CDT Respiratory Rate 16 08/10/2019 9:28 AM CDT Oxygen Saturation - - Inhaled Oxygen Concentration - - Weight 54.7 kg (120 lb 9 oz) 08/10/2019 9:28 AM CDT Height 149.9 cm (4' 11") 08/10/2019 9:28 AM CDT Body Mass Index 24.35 08/10/2019 9:28 AM CDT documented in this encounter Patient Instructions Patient InstructionsSacha Barroso RN - 08/10/2019 9:00 AM CDT After a Vaginal After having a baby, your body may be very tired. It can take time to recover from a vaginal delivery. You may stay in the hospital or center from 1 to 4 days.In some cases, you may be able to go home the same day. Right after the delivery Your temperature and blood pressure will be taken until they are stable. A nurse or other healthcareprovider will observe you as you rest. You may have afterbirth pains. These are cramps caused by theuterus shrinking. Sanitary pads are used to soak up the discharge of the uterine lining. To make sure that you arent bleeding too much, the pad will be checked. And the firmness of your uterus will be checked. To do this, a nurse will gently push down on your stomach. If you had anesthesia, youll be watched closely until you can feel and move your toes. If you have perineal pain (pain between the vagina and anus) , an ice pack can help. care While still in the hospital or center, youll learn how to hold and feed your baby. You willalso be given instructions on how to care for your baby. This includes bathing and feeding. Preparing to go home You may be anxious to go home as soon as possible. Before you and your baby go home, a healthcare provider will check to be sure you are healthy enough to take care of your baby and yourself. Youre ready to go home when: You can walk to the bathroom and use the bathroom without help. You can eat solid food and swallow pills (if needed). You have no sign of infection or other health problems, including fever. You have adequate pain control. Your bleeding isn't excessive. You are able to care for your and are emotionally stable. Before leaving the hospital or center, youll be given written instructions for home self-care after vaginal delivery. Be sure to follow these instructions carefully. If you have questions or concerns, talk about them now. If you have stitches You may have received stitches in the skin near your vagina. The stitches might have closed an episiotomy (an incision that enlarges the opening of the vagina) . Or you may have needed stitches to repair torn skin. Either way, your stitches should dissolve within weeks. Until then, you can help reduce discomfort, aid healing, and reduce your risk of infection by keeping the stitches clean. These tips can help: Gently wipe from front to back after you urinate or have a bowel movement. After wiping, spray warm water on the area. Or you can have a sitz bath. This means sitting in a tub with a few inches of water in it. Then pat the area dry or use a hairdryer on a cool setting. Do not use soap or any solution except water on the area. You can take a shower unless told not to. Change sanitary pads at least every [address] cold or heat packs on the area as directed by your healthcare providers or nurses. Keep a thin towel between the pack and your skin. Sit on firm seats so the stitches pull less. follow-up Schedule a follow-up exam with your healthcare provider for about 6 weeks after delivery. During this exam, your uterus and vaginal area will be checked. Contact your healthcare provider if you think you or your baby are having any problems. When to call your healthcare provider Call your healthcare provider right away if you have: A fever of 100.4F (38.0C) or higher Bleeding that needs a new sanitary pad after an hour, or large blood clots Pain in your vagina that gets worse and isn't relieved with medicine Swelling, discharge, or increased pain from vaginal tear or episiotomy Burning, pain, red streaks, or lumpy areas in your breasts that may be accompanied by flu-like symptoms Cracks, blisters, or blood on your nipples Burning or pain when you urinate Nausea or vomiting Dizziness or fainting Feelings of extreme sadness or anxiety, or a feeling that you dont want to be with your baby Belly pain that isnt relieved with medicine Vaginal discharge that has a bad odor No bowel movement for 5 days Painful urination, or inability to control urination Redness, warmth, or pain in the lower leg Chest pain Date Last Reviewed: 10/23/201719994730-5188 [employer]. [address] [place] [address]. All rights reserved. This information is not intended as a substitute for professional medical care. Always follow your healthcare professional's instructions. How to Breastfeed Babies use their lips, gums, and tongue to take milk from the breast (suckle). Your baby is born with an instinct for suckling. But it takes time for you and your baby to learn how to breastfeed. Thereare steps you can take to support your babys natural instincts. Pqvu-wq-ulkv If possible, hold your baby bare against your skin (gvri-jk-jjmo) just after giving and for a few hours after. You can also continue to do this in the first few weeks after . How often should I feed my baby? Nurse your 8 to 12 times every 24 hours. Feed your baby whenever he or she shows signs of hunger. When your baby is hungry, he or she will appear more awake and might root. Rooting means turning his or her head toward you when you stroke your babys cheek. Your baby might also make a suckingsound or suck on his or her hand. Crying is a late sign of hunger. If your baby is crying, it may behard for him or her to calm down to breastfeed.Infants will often eat at irregular times. But feedings will usually become more regular over time. Sometimes your baby might eat several times in a row(cluster feeding) and then take a break. Ifyour baby seems sleepy or too fussy to nurse,undress him or her and place your baby bare against your skin.Don't keep your baby swaddled tightly. This may keep him or her too sleepy to feed. Change which breast you offer first with each feeding. For example, if you started nursing on the right side with the last feeding, offer the left side first with this feeding. Always offer the other breast after your baby stops nursing on the first side. Ask your baby's healthcare provider about waking the baby for feeding. You may need to wake your baby and offer to nurse if it has been 4 hours since your baby 's last feeding. Offering your breast Hold your breast with your thumb on top and fingers underneathin a loose auto clutch rebuilder. Gentlystrokeyour nippleon your babys lower lip.When you see your baby open his or her mouth wide, quickly bring the baby to your breast. Latching on The way your baby connects with the breast is called the latch. When your baby attaches, you should see more of the darker skin around the nipple (areola) above the baby's upper lip than below the lower lip. The front of your baby's entire body should be touching you. Your baby's nose and chin should be against the breast. Your baby's cheeks should be full and not sinking inward. You should be able to see your baby's lips. They should be slightly flared outward. As your baby suckles, his or her jaw should open wide. It should not be "munching" as if chewing. Listen for swallowing. It should not hurt when your baby latches on and suckles. If it does, try releasing the latch and starting over. Releasing the latch Let your baby nurse until satisfied. In most cases, when your baby is finished nursing, he or she will let go on his or her own. This tells you that your baby is done feeding on that breast. But you may need to release the latch sooner if you feel pain or for some other reason. To do this, slip your finger into the corner of your baby's mouth. You should feel the suction break. Only when the seal is broken, move your baby off your breast. Don't take the baby off your breast until you've felt a decrease in suction. Burping your baby Breastfed babies don't need to burp as much as bottle-fed babies. Bottles flow faster, and babies tend to swallow more air.Tryto burp your baby after each breast: Hold the baby at your upper chest or slightly over your shoulder. Gently rub or pat the babys back. Or hold the baby sitting up on your lap. Support your baby's head and chest in front and in back.Slowly rock your baby back and forth. Dont worry if your baby doesn't burp. He or she may not need to. Date Last Reviewed: 01/21/201719992553-0087 [employer]. [address] [place] [address], [place] [address]. All rights reserved. This information is not intended as a substitute for professional medical care. Always follow your healthcare professional's instructions. Understanding Depression Youve just had a baby. You expected to be excited and happy. But instead you find yourself cryingfor no reason. You may have trouble coping with your daily tasks. You feel sad, tired, and hopeless most of the time. You may even feel ashamed or guilty. But what youre going through is not your fault and you can feel better. Talk to your healthcare provider. He or she can help. What is depression? Depression is a mood disorder that affects the way you think and feel. The most common symptom is a feeling of deep sadness. You may also feel as if you just cant cope with life. Other symptoms include: Gaining or losing a lot of weight Sleeping too much or too little Feeling tired all the time Feeling restless Crying a lot Having too little or too much appetite. Withdrawing from friends and family Having headaches, aches and pains, or stomach problems that won't go away. Fears of harming your baby Lack of interest in your baby Feeling worthless or guilty No longer finding pleasure in things you used to Having trouble thinking clearly or making decisions Thinking about or suicide Depression after childbirth You may be weepy and tired right after giving . These feelings are normal. Theyre sometimes called the baby blues. These blues go away after 1 to 2 weeks. However, (meaning after ) depression lasts much longer and is more severe than the "baby blues." It can make you feel sad and hopeless. You may also fear that your baby will be harmed and worry about being a bad mother. What causes depression? The exact cause of depression is unknown. Changes in brain chemistry or structure are believed to play a big role in depression.It may be due to changes in your hormones during and after childbirth. You may also be tired from caring for your baby and adjusting to being a mother. All thesefactors may make you feel depressed. In some cases, your genes may also play a role. Depression can be treated There are many ways to treat depression. Talking to your healthcare provider is the firststep toward feeling better. When to call your healthcare provider Call your healthcare provider if you: Cry for no clear reason Have trouble sleeping, eating, and making choices Questions whether you can handle caring for a baby Have intense feelings of sadness, anxiety, or despair that prevent you from being able to do yourdaily tasks Resources National [place] of Mental Gavuae435-028-9884xty.[facility].nih.gov National [place] on Mental Nmmfrun836-328-5300ftv.gaby.org Mental Health Aesglgj987-028-5630ars.[facility].org National Suicide Qrtnpun044-735-1384 (800-SUICIDE) Date Last Reviewed: 05/23/201719994010-5014 [employer]. [address] [place] [address]. All rights reserved. This information is not intended as a substitute for professional medical care. Always follow your healthcare professional's instructions. documented in this encounter Progress Notes Stacy Ceja, HANNAH - 08/10/2019 9:00 AM CDT Chief complaint: Chief Complaint Patient presents with Care 3WK Dot Toro is a 29 year old, , /White female. Patient's last menstrual periodwas 07/20/2019. Patient presents for her visit. She is 3 week(s) status-post a normal vaginal delivery.. Since discharge, lochia has stopped. Lochia described as none. She is and bottlefeeding. She reports no complaints in the bilateral breast(s). Patient denies pain. Patient has not attempted self treatment. She reports that she currently engages in sexual activity (none since delivery) and has had partners who are Male. She reports using the following method of control/protection: None. Desires Nexplanon Perineal repair: none Infants course complicated? no The patients course was without complication. The patients hospital course was without complication. Post- hemoglobin before leaving hospital: HGB Date Value Ref Range Status 07/21/2019 11.9 11.6 - 15.0 g/* Final complications: none Patient lives with with baby, with older child(lj) and with spouse. OB History T2 L2 SAB1 TAB0 Ectopic0 Multiple0 Live Births2 Name of Baby 1: Not recorded Date: Not recorded GA: Not recorded Delivery: Not recorded Apgar1: Not recorded Apgar5: Not recorded Living: Not recorded Name of Baby 2: Not recorded Date: 06/01/10 GA: 40w0d Delivery: Vaginal Apgar1: Not recorded Apgar5: Not recorded Living: Living Name of Baby 3: Not recorded Date: 06/08/14 GA: 40w0d Delivery: Vaginal Apgar1: Not recorded Apgar5: Not recorded Living: Living Name of Baby 4: Not recorded Date: Not recorded GA: Not recorded Delivery: Not recorded Apgar1: Not recorded Apgar5: Not recorded Living: Not recorded Depression Scale: I have been able to laugh and see the funny side of things: As much as I always could I have looked forward with enjoyment to things: As much as I ever did I have blamed myself unnecessarily when things went wrong: No, never I have been anxious or worried for no good reason: No, not at all I have felt scared or panicky for no good reason: No, not at all Things have been getting on top of me: No, I have been coping as well as ever I have been so unhappy that I have had difficulty sleeping: Not at all I have felt sad or miserable: No, not at all I have been so unhappy that I have been crying: No, never The thought of harming myself has occurred to me: Never Total: 0 Immunization History Administered Date(s) Administered TDAP (ADACEL) VACCINE 05/13/2019 Histories OB History Para Term AB Living 4 2 2 1 2 SAB TAB Ectopic Multiple Live Births 1 2 # Outcome Date GA Lbr [place]/2nd Weight Sex Delivery Anes PTL Lv 4 3 Term 06/08/14 40w0d F VAGINAL FRANTZ [...] file Gets together: Not on file Attends confucianism service: Not on file Active member of [...] Concern Not on file Social History Narrative Adventism preference is Yarsanism. Patient lives with and children. Social History Substance and Sexual Activity Sexual Activity Yes Partners: Male control/protection: None Comment: last sexual intercourse 04/29/2019 Labs No new labs and I have reviewed the patient's labs. Radiology No new radiology. Allergies Dot has No Known Allergies. Medications Dot has a current medication list which includes the following prescription(s): select-ob + dha, iron fum & p-fa-vit b & c no.9, docusate calcium, and ibuprofen. Review of Systems Constitutional: Negative for appetite change, fatigue and fever. Eyes: Negative for visual disturbance. Respiratory: Negative. Cardiovascular: Negative for palpitations and leg swelling. Gastrointestinal: Negative for abdominal pain, constipation, diarrhea, nausea and vomiting. Genitourinary: Negative. Negative for dysuria, vaginal bleeding, vaginal discharge and pelvic pain. Musculoskeletal: Negative. Skin: Negative for rash. Neurological: Negative for dizziness, light-headedness and headaches. Psychiatric/Behavioral: Negative. BP 103/71 (BP Location: Right arm, Patient Position: Sitting, BP CUFF SIZE: Adult Medium) | Pulse 63 | Temp 36.3 C (97.4 F) (Oral) | Resp 16 | Ht 4 ' 11" (1.499 m) | Wt 120 lb 9 oz (54.7 kg) |LMP 07/20/2019 | ? Yes | BMI 24.35 kg/m Pregravid BMI: 22.0 Physical Exam Vitals reviewed. Constitutional: She is oriented to person, place, and time. She appears well- developed and well-nourished. Cardiovascular: No peripheral edema present. Pulmonary/Chest: Normal inspiratory effort. Abdominal: Abdomen is soft. Neuro/Psychiatric: She has a normal mood and affect. She is oriented to person, place, and time. Skin: Skin normal. External genitalia: No lacerations Vagina: No blood Uterus: Normal involution Assessment/Plan 1. care and examination Denies concerns, coping well Desires Nexplanon at next appointment Return to clinic in 3 weeks. Reviewed patient instructions and provided printed copy. This visit did not involve counseling and coordination that comprised more than 50% of the visit time. Sacha Lubin RN - 08/10/2019 9:00 AM BECKYTPt in clinic today for 3 wk pp visit. 1) Delivery method Vaginal 2) [facility] 3) Patient is currently both (/bottlefeeding) 4) Desired BCM: Nexplanon 5) Patient denies pp depression 6) patient denies any vaginal bleeding, pelvic pain, and or fever. SACHA BARROSO RN 08/10/2019 9:34 AM documented in this encounter Plan of Treatment Date Type Specialty Care Team Description 09/05/2019 Office Visit OB Satellites Stacy Ceja, RAILROAD OPERATOR [address] [place] [id number] Health Maintenance Due Date Last Done Comments INFLUENZA VACCINE (#1) 2019 PAP SMEAR 05/13/2022 05/13/2019 DTaP,Tdap,and Td Vaccines (2 - Td) 05/13/2029 05/13/2019 PNEUMOCOCCAL 0-64 YEARS COMBINED Aged Out No longer eligible based on SERIES patient's age to complete this topic documented as of this encounter Results Not on filedocumented in this encounter Visit Diagnoses Diagnosis care and examination - Primary Routine follow-up documented in this encounter Insurance Payer Benefit Plan / Subscriber ID Effective Dates Phone Address Type Group [employer]IP [employer] [facility] CHIP [id number] 2019-Present CHIP [employer] [facility] [employer] [phone] FPL CHOICE documented as of this encounter
--- OUTSIDE RECORDS SUMMARY | 2019-12-14 11:21 | XMS REPORT | Summary of Care ---
:1990 Author Organization [facility] Address [address] [place] [address] Care Team Providers Name Role Phone Stacy [...] live [address] Procedures DISCHARGE FOLLOW-UP: [facility] [place] [address] Encounter Details Date Type Department Care Team Description 08/10/[address] [facility] RMP- Dali Mohamud, WHCNP [address] [place] [address] care and Visit Stacy Kwon FNP [address] [place] [address] examination (Primary [address]) [place] [address] Allergies No Known Allergiesdocumented as [...] in third trimester 05/13/2019 08/10/2019 Need for tmwsvtlknj-uwwqlzd-ctaijjeyo (Tdap) vaccine 05/13/2019 05/13/2019 Tubal ligation evaluation [...] lower leg Chest pain Date Last Reviewed: 10/23/201719998186-4161 [employer]. [address] [place] [address]. All rights reserved. This information is not [...] take to support your babys natural instincts. Gget-ox-ilqx If possible, hold your baby bare against your skin (quvt-su-hpxb) just after giving and for a few [...] on top and fingers underneathin a loose picc nurse. Gentlystrokeyour nippleon your babys lower lip.When you [...] may not need to. Date Last Reviewed: 01/21/201719994209-6788 [employer]. [address] [place] [address], [place] [address]. All rights reserved. This information is not [...] able to do yourdaily tasks Resources National [place] of Mental Ftsriy176-745-0685hhq.[facility].nih.gov National [place] on Mental Xiotgde198-973-1429tcb.gaby.org Mental Health Tsdawtz585-544-9206bew.[facility].org National Suicide Gannvig125-055-3879 (800-SUICIDE) Date Last Reviewed: 05/23/201719999570-1017 [employer]. [address] [place] [address]. All rights reserved. This information is not [...] file Gets together: Not on file Attends pentecostalism service: Not on file Active member of [...] Concern Not on file Social History Narrative Anglican preference is Latter Day. Patient lives with and children. Social History [...] Vaginal 2) Patient delivered on 07/20/2019 at [facility] 3) Patient is currently both (/bottlefeeding) 4) Desired BCM: Nexplanon 5) Patient denies pp depression 6) patient denies any vaginal bleeding, pelvic pain, and or fever. SACHA BARROSO RN 08/10/2019 9:34 AM documented in this encounter Plan of Treatment Health Maintenance Due Date Last Done Comments [...] Dates Phone Address Type Group [facility]IP [facility] MOM CHIP [id number] 2019-Present CHIP [employer] [facility] [employer] [phone] CHOICE documented as of this encounter
--- OUTSIDE RECORDS SUMMARY | 2019-12-14 11:21 | XMS REPORT | Summary of Care ---
:1990 Author Organization [facility] Address [address] [place] [id number] Care Team Providers Name Role Phone Stacy Ceja Primary Care Provider Reason for Referral (Routine) Status Reason Specialty Diagnoses / Referred By Referred To Procedures Contact Contact New Request OB Satellites Diagnoses High-risk in third trimester Insufficient care in third trimester BMI 25.0-25.9,adult Multiparity Tubal ligation evaluation 38 weeks gestation of Labor and delivery, indication for care Oneyda Aguila FNP (spontaneous vaginal delivery) Single live [address] Procedures DISCHARGE FOLLOW-UP: [place] [address] Reason for Visit Reason Comments Auth/Cert Status Reason Specialty Diagnoses / Referred By Contact Referred To Contact Procedures Obstetrics Diagnoses active labor term gestation J8c [address] [place] [phone] Encounter Details Date Type Department Care Team Description 07/20/2019 - Hospital Encounter Mother Baby Unit Kayden Fuentes ( spontaneous 07/21/2019 (J8C) vaginal delivery) [address] [place] [phone] Allergies No Known Allergiesdocumented as of this encounter (statuses as of 07/21/2019) Medications Medication Sig Dispensed Refills Start Date End Date Status docusate calcium Take 1 capsule 60 capsule 1 07/21/2019 Active 240 mg by mouth once capsuleIndication daily as s: Multiparity, needed for 38 weeks Constipation. gestation of , (spontaneous vaginal delivery) ibuprofen 600 mg Take 1 tablet 60 tablet 1 07/21/2019 Active tabletIndications by mouth every : Multiparity, 38 6 (six) hours weeks gestation as needed for of , Pain (scale (spontaneous 1-3) or Pain vaginal delivery) (scale 4-6) (Pain). Take with food or milk. Iron Fum & Take 1 capsule 30 capsule 2 07/21/2019 Active P-FA-Vit B & C by mouth No.9 (INTEGRA daily. PLUS) 125 mg iron- 1 mg CapIndications: Multiparity, 38 weeks gestation of , (spontaneous vaginal delivery) vit Take 1 Packet 30 Each 6 06/10/2019 07/21/2019 Discontinued 53-vrbb-ridgd-dha by mouth (SELECT-OB + DHA) daily. 29 mg iron-1 mg -250 mg combo packIndications: High-risk in third trimester documented as of this encounter (statuses as of 07/21/2019) Active Problems Problem Noted Date (spontaneous vaginal delivery) 07/21/2019 Single live 07/21/2019 38 weeks gestation of 07/20/2019 Labor and delivery, indication for care 07/20/2019 Breech presentation 06/23/2019 Overview: At 35 weeks, vertex at 36 weeks High-risk in third trimester 05/13/2019 Insufficient care in third trimester 05/13/2019 BMI 25.0-25.9,adult 05/13/2019 Multiparity 05/13/2019 Tubal ligation evaluation 05/13/2019 Estimated Date of Delivery Comments Yes 07/28/2019 Based on last menstrual period of 10/21/2018 (Exact Date) documented as of this encounter (statuses as of 07/21/2019) Resolved Problems Problem Noted Date Resolved Date Need for xxgbfwjueo-nxbxexn-yjufvzetj (Tdap) vaccine 05/13/2019 05/13/2019 documented as of this encounter (statuses as of 07/21/2019) Immunizations Name Administration Dates Next Due TDAP [...] Sign Reading Time Taken Comments Blood Pressure 98/68 07/21/2019 8:00 AM CDT Pulse 71 07/21/2019 8:00 AM CDT Temperature 36.5 C (97.7 F) 07/21/2019 8:00 AM CDT Respiratory Rate 20 07/21/2019 8:00 AM CDT Oxygen Saturation 99% 07/21/2019 8:00 AM CDT Inhaled Oxygen Concentration - - Weight 62.6 kg (138 lb) 07/20/2019 4:43 AM CDT Height 149.9 cm (4' 11.02") 07/20/2019 4:43 AM CDT Body Mass Index 27.86 07/20/2019 4:43 AM CDT documented in this encounter Discharge Summaries Oneyda Aguila FNP - 07/21/2019 8:48 AM CDT DISCHARGE SUMMARY - VAGINAL DELIVERY Date of Service: 07/21/2019 ADMIT DATE: 07/20/2019 DISCHARGE DATE: 07/21/2019 ATTENDING MD: Kayden Fuentes MD ATTENDING MD AT DISCHARGE: Tacho Hanks MD CNM/CHROME PLATER HELPER: HANNAH Chapman PCP: Stacy Ceja REASON FOR ADMISSION Admit For: Labor For: care for FINAL DIAGNOSIS: (the reason, after study, for admitting the patient to the hospital) S/P Vaginal Delivery SECONDARY DIAGNOSIS: (any diagnosis that, on this admission, required clinical evaluation, therapeutic treatment, diagnostic procedures, extended hospital stay , or additional nursing care/monitoring): Multiparous Principal Problem: (spontaneous vaginal delivery) (07/21/2019) POA: No Assessment: Delivered Plan: Routine course Active Problems: High-risk in third trimester (05/13/2019) POA: Yes Insufficient care in third trimester (05/13/2019) POA: Yes Multiparity (05/13/2019) POA: Yes 38 weeks gestation of (07/20/2019) POA: Yes Labor and delivery, indication for care (07/20/2019) POA: Yes Single live (07/21/2019) POA: No Assessment: Infant 2800g with 8/9 Apgars Plan: Infant in care of pediatricians BMI 25.0-25.9,adult (05/13/2019) POA: Yes Assessment: see BMI Plan: advised to avoid excessive exertion during immediate 6 weeks PP and encouraged healthy dietarymodification. Tubal ligation evaluation (05/13/2019) POA: Yes Assessment: incision intact with steri srips, no signs of infection Plan:discussed S&S of infection , advised to keep the incision clean and wash with soap and water, Analgesics for pain/ inflammation.RTC/ seek medical attention if notice signs of infection PRINCIPAL PROCEDURE: Cephalic vaginal delivery ADDITIONAL PROCEDURES: History reviewed. No pertinent surgical history. EFM SIGNIFICANT LAB/X-RAYS: HCT (%) Date Value 07/21/2019 37.4 HGB (g/dL) Date Value 07/21/2019 11.9 06/30/2019 12.3 Rubella: immune Varicella: immune Type and Screen: A and RH postive S: Patient has no complaints. Patient denies sob, vertigo, headache, blurred vision , epigastric pain orpalpitations. Patient reports voiding without difficulty with good urine output. Patient reports ambulating unassisted without difficulty. Tolerating diet, passing flatus. Breast/bottlefeeding. Happy with new baby.No evidence of depression. Patient desires discharge home today. Contraception: Nothing O: General: Alert and oriented. No apparent distress Affect appropriate Heart: regular rate and rhythm. Lungs: good inspiratory effort to inspections, lungs clear to auscultation bilaterally. Breast: soft Abdomen: soft non-tender. Fundus: firm at umbilicus Perineum: intact, no edema, hematoma or abcess Lochia: scant rubra, no clots Extremities: no edema bilaterally. No calf tenderness BP: (98-110)/(57-68) Temp: [36.5 C (97.7 F)-37.2 C (98.9 F)] Temp source: Oral (07/21 0800) Pulse: [71-91] Resp: [19-20] SpO2: [96 %-99 %] Height: -- Weight: -- BMI (calculated): -- P: Routine instructions reviewed w/ pt. Precautions re: bleed /injury, depression, infection & DVT's reviewed. She was instructed to return to ER if Temp greater than 100.4F, headache unresolved with pain medications, visual disturbances including double orblurry vision, seeing spots, upper abdominal pain, or vaginal bleeding greater than 1 pad per hour. Pelvic rest 6 weeks, and no heavy lifting. DIET: Regular diet ACTIVITY: as tolerated, no strenuous activity and no heavy lifting DISCHARGE MEDICATIONS: Current Discharge Medication List START taking these medications Details docusate calcium (SURFAK) 240 mg Take 240 mg by mouth once daily as needed for Constipation. Qty: 60 capsule, Refills: 1 Start date: 07/21/2019 Associated Diagnoses: Multiparity; 38 weeks gestation of ; ( spontaneous vaginal delivery) ibuprofen (IBU) 600 mg Take 600 mg by mouth every 6 (six) hours as needed for Pain (scale 1-3) or Pain (scale 4-6) (Pain). Take with food or milk. Qty: 60 tablet, Refills: 1 Start date: 07/21/2019 Associated Diagnoses: Multiparity; 38 weeks gestation of ; ( spontaneous vaginal delivery) Iron Fum & P-FA-Vit B & C No.9 (INTEGRA PLUS) 1 capsule Take 1 capsule by mouth daily. Qty: 30 capsule, Refills: 2 Start date: 07/21/2019 Associated Diagnoses: Multiparity; 38 weeks gestation of ; ( spontaneous vaginal delivery) STOP taking these medications vit 96-vcew-uxyhn-dha (SELECT-OB + DHA) 1 Packet Comments: Reason for Stopping: WOUND CARE: .Encouraged appropriate pericare DISCHARGE: Discharged: Home CONDITION AT TIME OF DISCHARGE: Stable FOLLOW-UP APPOINTMENT: With Criss HUSTON in 3 week(s) HANNAH Chapman Associated attestation - Tacho Hanks - 07/21/2019 11:19 AM CDTI was available for consultation.documented in this encounter Discharge Instructions Dawna Abad RN - 07/21/2019Multidisciplinary Discharge Instructions (may include diet, dressing changes, activity limits, written materials given to patient: DIET: Eat a well balanced diet; drink 6-8 glasses of fluids daily; eat fruits and green, leafy vegetables. DAILY ACTIVITIES: 1. As much as you feel able to do. Rest when you are tired. 2. Limitations: Specify; No heavy lifting other than your baby for 4 weeks if you had surgery. TREATMENT AT HOME 1. Use a well-fitting bra to prevent breast engorgement 2. Resume intercourse as instructed by your physician. 3. Do not use douches or tampons for four weeks. 4. To help prevent urinary tract infection; after each urination and bowel movement, wipe and dry from front to back and change ayana pad. 5. Follow discharge instructions regarding baby care. 6. Follow family planning instructions. IMMEDIATE TREATMENT - Call Clinic or Your Physician 1. Increase in pain and tenderness of uterus. 2. Increased vaginal bleeding (bright red blood which soaks 2 pads in 1 hour or pass large clots). 3. Foul smelling vaginal discharge. 4. Burning in the tube that empties the urine from the bladder. 5. Painful breast engorgement or cracked nipples. 6. Pain, discharges, or gaping incision. 7. Temperature greater than 38.0C or 100.4F 8. Pain and tenderness of calf or thigh muscles. 9. No bowel movements in 4 days. For Problems or Questions Call: OB Clinic Family Planning [phone] or Emergency: Go to the closest emergency room or call 911 AttachmentsThe following attachments cannot be sent through Care Everywhere.After a Vaginal (Hungarian) Depression, Understanding ( Hungarian)Breast, (Hungarian), Breast Care After (Hungarian)Bottle -feed, How to (Hungarian)documented in this encounter Progress Notes George Ramirez DO - 07/21/2019 9:27 AM CDT Post-Anesthesiology Follow-Up Note Dot Toro is a 29 year old female with the following past medical history: History reviewed. No pertinent past medical history. and who is status post vaginal delivery post- day #1. The anesthetic used was epidural. There was not an unintentional dural puncture. Patient is examined. Vital Signs: Patient Vitals for the past 24 hrs: BP Temp Temp src Pulse Resp SpO2 07/21/19 0800 98/68 36.5 C (97.7 F) Oral 71 20 99 % 07/21/19 0400 100/68 36.9 C (98.4 F) Oral 89 20 99 % 07/21/19 0000 110/64 36.6 C (97.9 F) Oral 88 20 99 % 07/20/19 2000 106/59 36.8 C (98.2 F) Oral 88 19 97 % 07/20/19 1600 98/60 36.8 C (98.2 F) Oral 83 19 97 % 07/20/19 1200 99/57 37.2 C (98.9 F) Oral 91 19 96 % The patient has been getting up and ambulating. The patient has voided. The patient reports no headache. The patient reports no back pain. There is no erythema, no ecchymosis, no edema and no tenderness over the neuraxial insertion site. There is not paraspinous muscle tenderness. Patient counseled that soreness over low back paraspinal muscles and over neuraxial injection site is common and expected to resolve in 1-2 weeks. Advised to seek medical attention if worsens, persistsor is associated with neurologic deficits. The patient reports no neurological deficits. The patient reports no nausea or vomiting. The patient is satisfied with her anesthetic. The patient does not require further followup. George Ramirez DO 07/21/2019 9:27 AM Samira Boyle MD - 07/20/2019 5:46 AM CDTBTL COUNSELING NOTE 07/20/2019 5:46 AM I counseled the patient regarding incentives, risks, benefits and alternatives of Bilateral Tubal Ligation including: risk of infection, bleeding, need for transfusion of blood/blood products, injury to ureter, bladder, bowel with possible further surgery, stint, catheterization or colostomy to repair. The permanence of this procedure and risk of regret in 1 in 3 women under the age of 30 were discussed. tubal ligation failure rate is 0.75% and higher in women younger than 30 years old. There is an increased risk for ectopic and the need to seek medical attention should failure of tubal ligation occur. Alternatives discussed include: Oral Contraceptive Agents, Intrauterine Device, Depo Provera, Ring, Patch, Condoms/foam, interval bilateral tubal ligation, or vasectomy of partner. All questions answered, and patient DECLINED with bilateral tubal ligation surgery. Samira Castillo MD #[id number] 07/20/2019 5:46 AM documented in this encounter Plan of Treatment Date Type Specialty Care Team Description 08/10/2019 Routine Visit OB Satellites [facility]ud[facility] [address] [place] [address] [phone] Health Maintenance Due Date Last Done Comments INFLUENZA VACCINE (#1) 2019 PAP SMEAR 05/13/2022 05/13/2019 DTaP,Tdap,and Td Vaccines (2 - Td) 05/13/2029 05/13/2019 PNEUMOCOCCAL 0-64 YEARS COMBINED Aged Out No longer eligible based on SERIES patient's age to complete this topic documented as of this encounter Procedures Procedure Name Priority Date/Time Associated Comments Diagnosis CBC WITH DIFFERENTIAL Routine 07/21/2019 3:15 Results for this AM CDT procedure are in the results section. CBC WITH DIFF Routine 07/21/2019 3:15 Results for this AM CDT procedure are in the results section. VENOUS CORD GAS LUIS ARMANDO 07/20/2019 6:18 Results for this AM CDT procedure are in the results section. ARTERIAL CORD GAS LUIS ARMANDO 07/20/2019 6:18 Results for this AM CDT procedure are in the results section. GALV ONLY - SYPHILIS LUIS ARMANDO 07/20/2019 5:06 Results for this IGG/IGM AM CDT procedure are in the results section. HEPATITIS B SURFACE LUIS ARMANDO 07/20/2019 5:06 Results for this ANTIGEN AM CDT procedure are in the results section. RHO (D) IMMUNE Routine 07/20/2019 5:01 Results for this GLOBULIN AM CDT procedure are in the results section. TYPE AND SCREEN LUIS ARMANDO 07/20/2019 5:01 Results for this AM CDT procedure are in the results section. documented in this encounter Results CBC WITH DIFFERENTIAL (07/21/2019 3:15 AM CDT) WBC 11.56 (H) 4.30 - 11.10 [facility] 10*3/L SERVICES RBC 4.24 3.93 - 5.25 [facility] 10*6/L SERVICES HGB 11.9 11.6 - 15.0 [facility] g/dL SERVICES HCT 37.4 35.7 - 45.2 % [facility] MCV 88.2 80.6 - 95.5 fL [facility] MCH 28.1 25.9 - 32.8 pg [facility] MCHC 31.8 31.6 - 35.1 [facility] g/dL SERVICES RDW-SD 49.8 39.0 - 49.9 fL [facility] RDW-CV 15.6 (H) 12.0 - 15.5 % [facility] PLT 308 166 - 358 [facility] 10*3/L SERVICES MPV 10.4 9.5 - 12.9 fL [facility] NRBC/100 WBC 0.0 0.0 - 10.0 /100 [facility] WBCs SERVICES NRBC x10^3 <0.01 10*3/L [facility] GRAN MAT (NEUT) % 63.5 % [facility] IMM GRAN % 0.90 % [facility] LYMPH % 27.2 % [facility] MONO % 6.6 % [facility] EOS % 1.4 % [facility] BASO % 0.4 % [facility] GRAN MAT x10^3(ANC) 7.34 (H) 1.88 - 7.09 [facility] 10*3/uL SERVICES IMM GRAN x10^3 0.10 (H) 0.00 - 0.06 [facility] 10*3/uL SERVICES LYMPH x10^3 3.15 1.32 - 3.29 [facility] 10*3/uL SERVICES MONO x10^3 0.76 0.33 - 0.92 [facility] 10*3/uL SERVICES EOS x10^3 0.16 0.03 - 0.39 [facility] 10*3/uL SERVICES BASO x10^3 0.05 0.01 - 0.07 [facility] 10*3/uL SERVICES Specimen Blood - HAND, LEFT Performing Organization Address [facility] Cent[facility]ode Phone Number [facility] CLIA: [id number], [address] [place] [address] [phone] [facility] ARTERIAL CORD GAS (07/20/2019 6:18 AM CDT) BASE EXCESS, CORD -3.3 mEq/L [facility] AC PH, CORD (BEAKER) 7.19 7.18 - 7.38 [facility] PC02, CORD 71 (H) 32 - 66 mmHg [facility] PO2, CORD <10 (L) 10 - 30 mmHg [facility] BICARBONATE, CORD 27 17 - 27 mEq/L [facility] Specimen Blood - CORD Performing Organization Address [facility] Centercopa Phone Number [facility] CLIA: [id number], [address] [place] [address] [facility] VENOUS CORD GAS (07/20/2019 6:18 AM CDT) VENOUS BASE EXCESS, -4.3 mEq/L [facility] CORD SERVICES VENOUS PH, CORD 7.38 7.25 - 7.45 [facility] VENOUS PC02, CORD 34 27 - 49 mmHg [facility] VENOUS PO2, CORD 31 17 - 41 mmHg [facility] VENOUS BICARBONATE, 20 12 - 29 mEq/L [facility] CORD SERVICES Specimen Blood - CORD Performing Organization Address City/[facility] Centercode Phone Number [facility] CLIA: [id number], [address] [place] [address] [facility] GALV ONLY - SYPHILIS IGG/IGM (07/20/2019 5:06 AM CDT) Syphilis IgG/IgM Non-reactive Non-reactive [facility] Specimen Blood - VENOUS Narrative Performed At Non-reactive - No serologic evidence of T. pallidum [facility] infection. Cannot exclude incubating or early syphilis. Submit a second specimen in 2-4 weeks if syphilis is clinically suspected. Equivocal - Further testing to follow. Reactive - Further testing to follow. Performing Organization Address City/[facility]/Zipcode Phone Number [facility] CLIA: [id number], [address] [place] [address] [phone] [facility] Hepatitis B Surface Antigen (07/20/2019 5:06 AM CDT) HBsAg HEPATITIS B Negative [facility] SURFACE ANTIGEN SERVICES NEGATIVE HBsAg 0.32 [facility] Semi-Quantitative SERVICES Specimen Blood Performing Organization Address City/[facility]/Zipcode Phone Number [facility] CLIA: [id number], [address] [place] [address] [phone] [facility] RHO (D) IMMUNE GLOBULIN (07/20/2019 5:01 AM CDT) RHIG CANDIDATE? No- see comment LAB Comment: Patient is not a candidate for RhIg- Patient is Rh Positive. Performed at [facility] Services - [facility] Blood [place] [address] Toll Free: [phone] CLIA No. [id number] Specimen Blood - VENOUS Performing Organization Address [facility] Phone Number BLD LAB Type and Screen - ONCE LUIS ARMANDO (07/20/2019 5:01 AM CDT) ABO & RH A POSITIVE LAB Comment: Performed at [facility] Services - [place] [address] Toll Free: [phone] CLIA No. [id number] IAT Negative LAB Comment: Performed at [facility] Laboratory Services - [facility] Blood [place] [address] Toll Free: [phone] CLIA No. [id number] Specimen Blood - VENOUS Performing Organization Address City/[facility]/Zipcode Phone Number [facility] documented in this encounter Visit Diagnoses Diagnosis (spontaneous vaginal delivery) - Primary Normal delivery High-risk in third trimester Insufficient care in third trimester BMI 25.0-25.9,adult Body Mass Index 25.0-25.9, adult Multiparity Tubal ligation evaluation Other specified pre-operative examination 38 weeks gestation of state, incidental Labor and delivery, indication for care Unspecified indication for care or intervention related to labor and delivery, unspecified as to episode of care Single live Outcome of delivery, single liveborn documented in this encounter Administered Medications Medication Order MAR Action Action Date Dose Rate Site acetaminophen (TYLENOL) tablet Given 07/20/2019 3:00 PM CDT 650 mg 650 mg 650 mg, Oral, Q6HPRN, Starting Thu07/20/19 at 0836, Until Discontinued, Routine, Pain (scale 1-3) docusate calcium (SURFAK) capsule 240 mg Given 07/21/2019 7:03 AM CDT 240 mg 240 mg, Oral, QDAILYPRN, Starting Thu07/20/19 at 0836, Until Discontinued, Routine, Constipation ibuprofen (IBU) tablet 600 mg Given 07/21/2019 7:03 AM CDT 600 mg 600 mg, Oral, Q6HPRN, Starting Thu07/20/19 at 0836, Until Discontinued, Routine, Pain (scale 4-6) Given 07/20/2019 11:57 PM CDT 600 mg Given 07/20/2019 3:00 PM CDT 600 mg vitamin w/FA (PRENATABS RX) Given 07/21/2019 9:06 AM CDT 1 tablet tablet 1 tablet 1 tablet, Oral, DAILY, First dose on Thu07/20/19 at 0900, Until Discontinued, Routine Medication Order MAR Action Action Date Dose Rate Site sodium citrate-citric acid Given 07/20/2019 5:27 AM CDT 30 mL (BICITRA) 500-334 mg/5 mL solution 30 mL 30 mL, Oral, PRE-PROCEDURE ONCE, 1 dose, Starting Thu07/20/19 at 0501, Until Thu07/20/19 at 0527, Routine, Surgery/Procedure documented in this encounter Insurance Payer Benefit Plan / Subscriber ID Effective Phone Address Type Group Dates MEDICAID CHIP AYANA PENDING 2019-07/[address] [place] [address] [address] P[id number] [place], [place] MEDICA[place] [id number] documented as of this encounter
[2019-12-14] MEDS ORDERED: MORPHINE 4 MG/ML SYR ONE (12:37)
[2019-12-14] MEDS ORDERED: NA CHLORIDE 0.9% 1,000 ML ONE ×2 (12:37→15:33)
[2019-12-14] MEDS ORDERED: ONDANSETRON 4 MG/2 ML VIAL ONE (12:37)
[2019-12-14 12:46] LABS: Absolute Lymphocytes (CBC) 0.7 K/uL (0.7-4.9); Basophils % 0.2 % (0-1.3); Hematocrit 44.9 % (36.0-45.0); Lymphocytes % 3.3 % (15.3-44.8); MPV 8.3 fL (7.6-11.3); RBC Red Blood Cell Count 4.95 M/uL (3.86-4.86)
[2019-12-14 12:59] LABS: Urine Blood TRACE (NEG); Urine Glucose NEGATIVE (NEG); Urine Protein NEGATIVE (NEG); Urine Specific Gravity <1.005 (1.005-1.030)
[2019-12-14 13:03] LABS: Urine Bacteria >50 /HPF (<20); Urine Culture Reflex Order REFLEXED; Urine RBC <5 /HPF (NONE SEEN)
[2019-12-14 13:04] LABS: ALT/SGPT 23 U/L (12-78); AST/SGOT 18 U/L (15-37); Albumin 3.5 g/dL (3.4-5.0); Alkaline Phosphatase 77 U/L (45-117); BUN Blood Urea Nitrogen 4 mg/dL (7-18); Bicarbonate 25 mmol/L (21-32); Bilirubin Direct 0.2 mg/dL (0-0.2); Bilirubin Total 0.5 mg/dL (0.2-1.0); Glucose Level 96 mg/dL (74-106); Lipase 60 U/L (73-393); Potassium 3.2 mmol/L (3.5-5.1); Protein, Total 7.7 g/dL (6.4-8.2); Sodium Level 138 mmol/L (136-145)
[2019-12-14 14:38] LABS: Toxic Granulation 1+
[2019-12-14 14:39] LABS: Blood Morphology Comment NOT SEEN (NOT SEEN); Platelet Estimate ADEQ
--- NOTE | 2019-12-14 15:18 | RAD REPORT ---
EXAM DESCRIPTION: CT - Abdomen Pelvis W Contrast - 12/14/2019 2:49 pm CLINICAL HISTORY: left flank pain COMPARISON: Abdomen Pelvis W Contrast dated 12/25/2017 TECHNIQUE: Biphasic, helical CT imaging of the abdomen and pelvis was performed following 100 ml non -ionic IV contrast. No oral contrast. All CT scans are performed using dose optimization technique as appropriate and may include automated exposure control or mA/KV adjustment according to patient size. FINDINGS: No suspicious findings in the lung bases. The liver, spleen, and pancreas show no suspicious findings. Liver is borderline to mildly fatty infi ltrated. No gallbladder or biliary tree abnormality. No hydronephrosis present. There is heterogeneous enhancement of the left renal parenchyma. Right lj al parenchyma enhances normally. No abscess or perinephric abnormality. Enhancement of the right uret er is present. No solid mass lesion. No urinary bladder wall thickening or enhancement. No adrenal ab normalities. No dilated bowel loops or bowel wall thickening. Appendix is normal. No free air, free fluid or pneum atosis. Small fat only umbilical hernia present. No mass or bulky lymphadenopathy. No suspicious bony findings. IMPRESSION: Mild left-sided pyelonephritis and left-side ureteritis. No abscess or other complicating factor.
[2019-12-14] MEDS ORDERED: IBUPROFEN 400 MG TAB ONE (15:33)
[2019-12-14] MEDS ORDERED: CEFTRIAXONE/SWI 1gm 2 GM/20 ML SYR ONE (15:34)
--- NOTE | 2019-12-14 17:41 | EDPHYS ---
Physician Documentation [facility] Name: Dot Kohli Age: 29 yrs Sex: Female : 1990 Arrival Date: 12/14/2019 Time: 11:21 Bed 26 Private MD: ED Physician Gerson Torres HPI: 12/14 12:14 This 29 yrs old Female presents to ER via Ambulatory with complaints of jmm Vomiting, Fever. 12:14 The patient presents to the emergency department with vomiting, abdominal pain, of the jmm anterior aspect of left lateral abdomen. Onset: The symptoms/episode began/occurred gradually, 4 day(s) ago. Possible causes: unknown. The symptoms are aggravated by nothing. The symptoms are alleviated by nothing. Associated signs and symptoms: Pertinent positives: abdominal pain, fever, vomiting. The patient has not experienced similar symptoms in the past. This is a 29 year old female with no chronic medical conditions that presents to the ED with complaints of left flank pain beginning this past Thursday with radiation into the lower abdomen. Vomiting began today. . 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 - Social history:: Smoking status: Patient denies any tobacco usage or history of. - Ebola Screening: : Patient negative for fever greater than or equal to 101.5 degrees Fahrenheit, and additional compatible Ebola Virus Disease symptoms Patient denies exposure to infectious person Patient denies travel to an Ebola-affected area in the 21 days before illness onset No symptoms or risks identified at this time. ROS: 12:14 Constitutional: Positive for fever. jmm 12:14 Abdomen/GI: Positive for abdominal pain. 12:14 Abdomen/GI: Positive for vomiting. 12:14 Back: Positive for pain with movement. 12:14 All other systems are negative. Exam: 12:14 Constitutional: This is a well developed, well nourished patient who is awake, alert, jmm and in no acute distress. Head/Face: atraumatic. Eyes: EOMI, no conjunctival erythema appreciated ENT: Moist Mucus Membranes Neck: Trachea midline, Supple Chest/axilla: Normal chest wall appearance and motion. Cardiovascular: Regular rate and rhythm. No edema appreciated Respiratory: Normal respirations, no respiratory distress appreciated 12:14 Skin: General appearance color normal MS/ Extremity: Moves all extremities, no obvious deformities appreciated, no edema noted to the lower extremities Neuro: Awake and alert, normal gait Psych: Behavior is normal, Mood is normal, Patient is cooperative and pleasant 12:14 Abdomen/GI: Inspection: abdomen appears normal, Bowel sounds: normal, Palpation: abdomen is soft and non-tender, in all quadrants. 12:14 Back: CVA tenderness, that is mild, is noted on the left. Vital Signs: 11:34 BP 108 / 75; Pulse 131; Resp 16; Temp 99.8; Pulse Ox 98% on R/A; iw 12:45 BP 110 / 84; Pulse 118; Resp 18 S; Temp 99.5(O); Pulse Ox 96% on R/A; ca1 13:40 BP 99 / 71; Pulse 119; Resp 17 S; Pulse Ox 98% on R/A; ca1 14:31 BP 102 / 69; Pulse 121; Resp 18 S; Pulse Ox 98% on R/A; ca1 15:27 BP 113 / 68; Pulse 125; Resp 18 S; Temp 99.5(O); Pulse Ox 100% on R/A; ca1 16:35 BP 105 / 76; Pulse 115; Resp 18 S; Pulse Ox 100% on R/A; ca1 17:32 BP 100 / 79; Pulse 114; Resp 16 S; Temp 99.5(O); Pulse Ox 98% on R/A; ca1 MDM: 12:12 Patient medically screened. rashard 17:38 Data reviewed: vital signs, nurses notes. Counseling: I had a detailed discussion with luis the patient and/or guardian regarding: the historical points, exam findings, and any diagnostic results supporting the discharge/admit diagnosis, lab results, radiology results, the need for outpatient follow up, to return to the emergency department if symptoms worsen or persist or if there are any questions or concerns that arise at home. ED course: patient is alert and non toxic in appearance in the ED. Patient given strict return precautions. patient understood and agrees with the plan of care. . 12/14 12:13 Order name: Basic Metabolic Panel; Complete Time: 13:11 [facility] 12/14 12:13 Order name: CBC with Diff; Complete Time: 14:44 [facility] 12/14 12:13 Order name: Creatinine for Radiology; Complete Time: 13:11 [facility] 12/14 12:13 Order name: Hepatic Function; Complete Time: 13:11 [facility] 12/14 12:13 Order name: Lipase; Complete Time: 13:11 [facility] 12/14 12:13 Order name: Lactate; Complete Time: 13:00 [facility] 12/14 12:13 Order name: Procalcitonin; Complete Time: 13:13 [facility] 12/14 12:13 Order name: Blood Culture Adult (2) [facility] 12/14 12:13 Order name: Urine Culture [facility] 12/14 12:14 Order name: Flu; Complete Time: 13:11 [facility] 12/14 12:18 Order name: Test, Serum; Complete Time: 14:44 [facility] 12/14 12:19 Order name: Urine Microscopic Only; Complete Time: 13:11 [facility] 12/14 12:53 Order name: Urine Dipstick--Ancillary (enter results); Complete Time: 13:01 12/14 13:00 Order name: Manual Differential; Complete Time: 14:44 [facility] 12/14 12:13 Order name: IV Saline Lock; Complete Time: 12:38 [facility] 12/14 12:13 Order name: Labs collected and sent; Complete Time: 12:38 [facility] 12/14 12:13 Order name: Urine Dipstick-Ancillary (obtain specimen); Complete Time: 12:38 [facility] 12/14 12:13 Order name: Urine Test (obtain specimen); Complete Time: 12:38 [facility] 12/14 12:14 Order name: CT Abd/Pelvis - IV Contrast Only; Complete Time: 15:27 [facility] 12/14 16:14 Order name: PO challenge; Complete Time: 16:35 [facility] Administered Medications: 12:32 Drug: NS 0.9% 1000 ml Route: IV; Rate: 1 bolus; Site: right antecubital; ca1 13:40 Follow up: Urine output 230 ml; IV Status: Completed infusion; IV Intake: 1000ml ca1 12:34 Drug: Zofran 4 mg Route: IVP; Site: right antecubital; ca1 13:40 Follow up: Response: No adverse reaction; Nausea is decreased ca1 12:36 Drug: morphine 4 mg Route: IVP; Site: right antecubital; ca1 13:40 Follow up: Response: No adverse reaction; Pain is decreased; RASS: Alert and Calm (0) ca1 15:33 Drug: Rocephin 2 grams Route: IV; Rate: calculated rate; Site: right antecubital; ca1 16:00 Follow up: Response: No adverse reaction; IV Status: Completed infusion ca1 15:33 Drug: Motrin 800 mg Route: PO; ca1 16:30 Follow up: Response: No adverse reaction; Pain is decreased ca1 15:34 Drug: NS 0.9% 1000 ml Route: IV; Rate: 1 bolus; Site: right antecubital; ca1 16:30 Follow up: Response: No adverse reaction; IV Status: Completed infusion ca1 Disposition: 12/15 08:10 Co-signature as Attending Physician, Gerson Torres MD. rn Disposition: 12/14/19 17:41 Discharged to Home. Impression: Acute Pyelonephritis. - Condition is Stable. - Discharge Instructions: Pyelonephritis, Adult. - Prescriptions for Zofran ODT 4 mg Oral tablet,disintegrating - place 1 tablet by TRANSLINGUAL route every 4-6 hours; 20 tablet. cefpodoxime 200 mg Oral Tablet - take 1 tablet by ORAL route every 12 hours with food; 20 tablet. Tylenol- Codeine #3 300-30 mg Oral Tablet - take 1 tablet by ORAL route every 6 hours As needed; 20 tablet. - Medication Reconciliation Form, Thank You Letter, Antibiotic Education, Prescription Opioid Use form. - Follow up: Private Physician; When: 2 - 3 days; Reason: Recheck today's complaints, Continuance of care, Re-evaluation by your physician. Signatures: Dispatcher [employer] EDMS Jose Olea PA PA jmm Williams, Irene, RN RN iw Nieto, Roman, MD MD rn AcobKanwal RN RN ca1 Corrections: (The following items were deleted from the chart) 12/14 17:59 17:41 12/14/2019 17:41 Discharged to Home. Impression: Acute Pyelonephritis. Condition ca1 is Stable. Forms are Medication Reconciliation Form, Thank You Letter, Antibiotic Education, Prescription Opioid Use. Follow up: Private Physician; When: 2 - 3 days; Reason: Recheck today's complaints, Continuance of care, Re-evaluation by your physician. rashardm
--- NOTE | 2019-12-14 17:41 | ER ---
Nurse's Notes [facility] Name: Dot Kohli Age: 29 yrs Sex: Female : 1990 Arrival Date: 12/14/2019 Time: 11:21 Bed 26 Private MD: Diagnosis: Acute Pyelonephritis Presentation: 12/14 11:32 Presenting complaint: Patient states: left mid back pain since Thursday, denies urinary iw s/s, +fever, and vomiting and nausea. Transition of care: patient was not received from another setting of care. Onset of symptoms was December 12, 2019. Risk Assessment: Do you want to hurt yourself or someone else? Patient reports no desire to harm self or others. Initial Sepsis Screen: Does the patient meet any 2 criteria? No. Patient's initial sepsis screen is negative. Does the patient have a suspected source of infection? No. Patient's initial sepsis screen is negative. Care prior to arrival: None. 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 - Social history:: Smoking status: Patient denies any tobacco usage or history of. - Ebola Screening: : Patient negative for fever greater than or equal to 101.5 degrees Fahrenheit, and additional compatible Ebola Virus Disease symptoms Patient denies exposure to infectious person Patient denies travel to an Ebola-affected area in the 21 days before illness onset No symptoms or risks identified at this time. Screenin:45 Abuse screen: Denies threats or abuse. Denies injuries from another. Nutritional ca1 screening: No deficits noted. Tuberculosis screening: No symptoms or risk factors identified. Fall Risk IV access (20 points). Assessment: 11:45 General: Appears in no apparent distress. comfortable, Behavior is calm, cooperative, ca1 appropriate for age. General: Reports chills for fever for 1-2 days. Pain: Complains of pain in anterior aspect of left lateral abdomen Pain radiates to left upper quadrant and left lower quadrant Pain currently is 8 out of 10 on a pain scale. Pain began 1 day ago. Is intermittent. Neuro: Level of Consciousness is awake, alert, obeys commands, Oriented to person, place, time, situation, Appropriate for age. Cardiovascular: Heart tones S1 S2 present Capillary refill < 3 seconds Patient's skin is warm and dry. Respiratory: Airway is patent Respiratory effort is even, unlabored, Respiratory pattern is regular, symmetrical, Breath sounds are clear bilaterally. GI: Abdomen is round non-distended, Bowel sounds present X 4 quads. Abd is soft X 4 quads Abdomen is tender to palpation in left upper quadrant Reports nausea, vomiting. : No deficits noted. No signs and/or symptoms were reported regarding the genitourinary system. EENT: No deficits noted. No signs and/or symptoms were reported regarding the EENT system. Derm: Skin is intact, is healthy with good turgor, Skin is pink, warm \T\ dry. Musculoskeletal: Circulation, motion, and sensation intact. Capillary refill < 3 seconds, Range of motion: intact in all extremities. 12:42 Reassessment: Patient appears in no apparent distress at this time. No changes from ca1 previously documented assessment. Patient and/or family updated on plan of care and expected duration. Pain level reassessed. Patient is alert, oriented x 3, equal unlabored respirations, skin warm/dry/pink. 13:30 Reassessment: Patient appears in no apparent distress at this time. Patient and/or ca1 family updated on plan of care and expected duration. Pain level reassessed. Patient is alert, oriented x 3, equal unlabored respirations, skin warm/dry/pink. 14:30 Reassessment: Patient appears in no apparent distress at this time. Patient and/or ca1 family updated on plan of care and expected duration. Pain level reassessed. Patient is alert, oriented x 3, equal unlabored respirations, skin warm/dry/pink. 14:45 Reassessment: PT to CT. mg2 15:27 Reassessment: Patient appears in no apparent distress at this time. Patient and/or ca1 family updated on plan of care and expected duration. Pain level reassessed. Patient is alert, oriented x 3, equal unlabored respirations, skin warm/dry/pink. 16:32 Reassessment: Patient appears in no apparent distress at this time. Patient and/or ca1 family updated on plan of care and expected duration. Pain level reassessed. Patient is alert, oriented x 3, equal unlabored respirations, skin warm/dry/pink. 17:36 Reassessment: Patient appears in no apparent distress at this time. Patient is alert, ca1 oriented x 3, equal unlabored respirations, skin warm/dry/pink. Vital Signs: 11:34 BP 108 / 75; Pulse 131; Resp 16; Temp 99.8; Pulse Ox 98% on R/A; iw 12:45 BP 110 / 84; Pulse 118; Resp 18 S; Temp 99.5(O); Pulse Ox 96% on R/A; ca1 13:40 BP 99 / 71; Pulse 119; Resp 17 S; Pulse Ox 98% on R/A; ca1 14:31 BP 102 / 69; Pulse 121; Resp 18 S; Pulse Ox 98% on R/A; ca1 15:27 BP 113 / 68; Pulse 125; Resp 18 S; Temp 99.5(O); Pulse Ox 100% on R/A; ca1 16:35 BP 105 / 76; Pulse 115; Resp 18 S; Pulse Ox 100% on R/A; ca1 17:32 BP 100 / 79; Pulse 114; Resp 16 S; Temp 99.5(O); Pulse Ox 98% on R/A; ca1 ED Course: 11:21 Patient arrived in ED. mr 11:33 Triage completed. iw 11:36 Jose Olea PA is PHCP. jmm 11:36 Gerson Torres MD is Attending Physician. jmm 11:40 Kanwal Lara, LUIS MANUEL is Primary Nurse. ca1 11:40 Arm band placed on. ca1 11:45 Patient has correct armband on for positive identification. Placed in gown. Bed in low ca1 position. Call light in reach. Side rails up X 1. Pulse ox on. NIBP on. 12:30 No provider procedures requiring assistance completed. Inserted saline lock: 20 gauge ca1 in right antecubital area, using aseptic technique. Blood collected. 12:30 Initial lab(s) drawn, by me, sent to lab. First set of blood cultures drawn by me. ca1 13:58 Initial lab(s) drawn, by me, sent to lab. mg2 14:49 CT Abd/Pelvis - IV Contrast Only In Process Unspecified. EDMS 17:57 IV discontinued, intact, bleeding controlled, No redness/swelling at site. Pressure ca1 dressing applied. Administered Medications: 12:32 Drug: NS 0.9% 1000 ml Route: IV; Rate: 1 bolus; Site: right antecubital; ca1 13:40 Follow up: Urine output 230 ml; IV Status: Completed infusion; IV Intake: 1000ml ca1 12:34 Drug: Zofran 4 mg Route: IVP; Site: right antecubital; ca1 13:40 Follow up: Response: No adverse reaction; Nausea is decreased ca1 12:36 Drug: morphine 4 mg Route: IVP; Site: right antecubital; ca1 13:40 Follow up: Response: No adverse reaction; Pain is decreased; RASS: Alert and Calm (0) ca1 15:33 Drug: Rocephin 2 grams Route: IV; Rate: calculated rate; Site: right antecubital; ca1 16:00 Follow up: Response: No adverse reaction; IV Status: Completed infusion ca1 15:33 Drug: Motrin 800 mg Route: PO; ca1 16:30 Follow up: Response: No adverse reaction; Pain is decreased ca1 15:34 Drug: NS 0.9% 1000 ml Route: IV; Rate: 1 bolus; Site: right antecubital; ca1 16:30 Follow up: Response: No adverse reaction; IV Status: Completed infusion ca1 Intake: 13:40 IV: 1000ml; Total: 1000ml. ca1 Output: 13:40 Urine: 230ml; Total: 230ml. ca1 Outcome: 17:41 Discharge ordered by . luis 17:57 Discharged to home ambulatory, with family. ca1 17:57 Condition: stable 17:57 Discharge instructions given to patient, Instructed on discharge instructions, follow up and referral plans. no drinking with medication, no driving heavy equipment, medication usage, Demonstrated understanding of instructions, follow-up care, medications, Prescriptions given X 3. 17:59 Patient left the ED. ca1 Addendum: 12/18/2019 07:49 Addendum: Culture Results: Positive urine culture. Positive blood culture. Bacteria is s s resistant to, has intermediate sensitivity, or is not tested against prescribed antibiotics. Report given to DAKSHA for further evaluation and then to meteorological technician for follow up with patient. Signatures: Dispatcher [employer] EDMS Jose Olea PA PA jmm Rivera, Mary mr Williams, Irene, RN RN iw Beth White, RN RN ss Saran Hurst, RN RN mg2 Kanwal Lara, RN RN ca1
[2019-12-15 00:26] VITALS: TEMP 99.5
[2019-12-15 00:34] VITALS: BP 100/79; O2SAT 98
== END 2019-12-14 17:59 | disposition home or self-care (01) ==
LOC: ER 11:17
DX: N10 Acute pyelonephritis (principal)
CPT/HCPCS: 36415; 74177; 80048; 80076; 81003; 81015; 83605; 83690; 84145; 84703; 85025; 87040; 87077; 87086; 87088; 87186; 87205; 87804; 96361; 96365; 96375; 99284; J0696; J2405; J7030; Q9967

== ENCOUNTER 2019-12-20 08:57 | Emergency (ER) | payer SELFPAY ==
--- OUTSIDE RECORDS SUMMARY | 2019-12-20 09:00 | XMS REPORT ---
:1990 [facility] Address [address] [place] [address] [address] [place] [address] Care Team Providers Name Role Phone Unavailable Unavailable Unavailable Problems This patient has no known problems. Allergies, Adverse Reactions, Alerts This patient has no known allergies or adverse reactions. Medications This patient has no known medications.
--- NOTE | 2019-12-20 10:18 | EDPHYS ---
Physician Documentation [facility] Name: Dot Kohli Age: 29 yrs Sex: Female : 1990 Arrival Date: 12/20/2019 Time: 09:00 Bed 23 Private MD: ED Physician Berny Loya HPI: 12/20 14:07 This 29 yrs old Female presents to ER via Ambulatory with complaints of Pain. kdr 14:07 The patient presents with abdominal pain that is diffuse, Constipation for five days. kdr Onset: The symptoms/episode began/occurred gradually, 5 day(s) ago. The symptoms do not radiate. Associated signs and symptoms: none. The symptoms are described as dull, vague. Modifying factors: The symptoms are alleviated by nothing, the symptoms are aggravated by nothing. Severity of pain: At its worst the pain was very mild in the emergency department the pain is unchanged. The patient has not experienced similar symptoms in the past. The patient has been recently seen by a physician: The patient is concerned because she has not had a bowel movement in the last five days. She is not in any acute distress. 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 - Coronavirus screen:: The patient has NOT traveled to [place], [place], or [place] in the past 14 days. Proceed with normal triage process as indicated. - Social history:: Smoking status: Patient denies any tobacco usage or history of. - Ebola Screening: : Patient negative for fever greater than or equal to 101.5 degrees Fahrenheit, and additional compatible Ebola Virus Disease symptoms Patient denies exposure to infectious person Patient denies travel to an Ebola-affected area in the 21 days before illness onset No symptoms or risks identified at this time. ROS: 14:07 Constitutional: Negative for fever, chills, and weight loss, Eyes: Negative for injury, kdr pain, redness, and discharge, ENT: Negative for injury, pain, and discharge, Neck: Negative for injury, pain, and swelling, Cardiovascular: Negative for chest pain, palpitations, and edema, Respiratory: Negative for shortness of breath, cough, wheezing, and pleuritic chest pain, Back: Negative for injury and pain, : Negative for injury, bleeding, discharge, and swelling, MS/Extremity: Negative for injury and deformity, Skin: Negative for injury, rash, and discoloration, Neuro: Negative for headache, weakness, numbness, tingling, and seizure activity. Psych: Negative for depression, anxiety, suicide ideation, homicidal ideation, and hallucinations, Allergy/Immunology: Negative for hives, rash, and allergies, Endocrine: Negative for neck swelling, polydipsia, polyuria, polyphagia, and marked weight changes, Hematologic/Lymphatic: Negative for swollen nodes, abnormal bleeding, and unusual bruising. 14:07 Abdomen/GI: Positive for constipation, Negative for abdominal pain, nausea and vomiting, nausea, vomiting, and diarrhea, nausea, abdominal cramps, abdominal distension, anorexia, dysphagia, hematemesis, black/tarry stool, rectal pain, rectal bleeding, bowel incontinence. Exam: 14:07 Constitutional: This is a well developed, well nourished patient who is awake, alert, kdr and in no acute distress. Head/Face: Normocephalic, atraumatic. Eyes: Pupils equal round and reactive to light, extra-ocular motions intact. Lids and lashes normal. Conjunctiva and sclera are non-icteric and not injected. Cornea within normal limits. Periorbital areas with no swelling, redness, or edema. Neck: Trachea midline, no thyromegaly or masses palpated, and no cervical lymphadenopathy. Supple, full range of motion without nuchal rigidity, or vertebral point tenderness. No Meningismus. Chest/axilla: Normal chest wall appearance and motion. Nontender with no deformity. No lesions are appreciated. Cardiovascular: Regular rate and rhythm with a normal S1 and S2. No gallops, murmurs, or rubs. Normal PMI, no JVD. No pulse deficits. Respiratory: Lungs have equal breath sounds bilaterally, clear to auscultation and percussion. No rales, rhonchi or wheezes noted. No increased work of breathing, no retractions or nasal flaring. Abdomen/GI: Soft, non-tender, with normal bowel sounds. No distension or tympany. No guarding or rebound. No evidence of tenderness throughout. Back: No spinal tenderness. No costovertebral tenderness. Full range of motion. Skin: Warm, dry with normal turgor. Normal color with no rashes, no lesions, and no evidence of cellulitis. MS/ Extremity: Pulses equal, no cyanosis. Neurovascular intact. Full, normal range of motion. Neuro: Awake and alert, GCS 15, oriented to person, place, time, and situation. Cranial nerves II-XII grossly intact. Motor strength 5/5 in all extremities. Sensory grossly intact. Cerebellar exam normal. Normal gait. Psych: Awake, alert, with orientation to person, place and time. Behavior, mood, and affect are within normal limits. Vital Signs: 09:19 BP 104 / 65; Pulse 74; Resp 16; Temp 97.7; Pulse Ox 100% on R/A; Weight 56.7 kg; Pain iw 4/10; 10:08 BP 112 / 77; Pulse 78; Resp 17 S; Pulse Ox 99% on R/A; ca1 11:00 BP 107 / 70; Pulse 72; Resp 19 S; Pulse Ox 100% on R/A; ca1 MDM: 10:17 Patient medically screened. kdr 14:07 Data reviewed: vital signs, nurses notes, lab test result(s), radiologic studies. kdr Counseling: I had a detailed discussion with the patient and/or guardian regarding: the historical points, exam findings, and any diagnostic results supporting the discharge/admit diagnosis, the need for outpatient follow up. Administered Medications: No medications were administered Disposition: 12/20/19 10:17 Discharged to Home. Impression: Constipation. - Condition is Stable. - Discharge Instructions: Constipation, Adult, [id number]. - Prescriptions for Miralax 17 gram/dose Oral - take 1 packet by ORAL route once daily As needed dilute powder in 8 ounces of water or juice; 1 box. - Medication Reconciliation Form, Thank You Letter form. - Follow up: Private Physician; When: 2 - 3 days; Reason: If symptoms return, Further diagnostic work-up, Recheck today's complaints, Continuance of care, Re-evaluation by your physician. - Problem is new. - Symptoms are unchanged. Signatures: Berny Loya MD MD kdr Crissy Ceja RN RN iw AcKanwal west RN RN ca1 Corrections: (The following items were deleted from the chart) 11:11 10:17 12/20/2019 10:17 Discharged to Home. Impression: Constipation. Condition is ca1 Stable. Forms are Medication Reconciliation Form, Thank You Letter, Antibiotic Education, Prescription Opioid Use. Follow up: Private Physician; When: 2 - 3 days; Reason: If symptoms return, Further diagnostic work-up, Recheck today's complaints, Continuance of care, Re-evaluation by your physician. Problem is new. Symptoms are unchanged. kdr
--- NOTE | 2019-12-20 10:18 | ER ---
Nurse's Notes [facility] Name: Dot Kohli Age: 29 yrs Sex: Female : 1990 Arrival Date: 12/20/2019 Time: 09:00 Bed 23 Private MD: Diagnosis: Constipation Presentation: 12/20 09:17 Presenting complaint: Patient states: Thursday she came for kidney pain, has been iw taking her medication and now she is constipated, has not had a BM in 5 days. 09:18 Transition of care: patient was not received from another setting of care. Onset of iw symptoms was December 20, 2019. Risk Assessment: Do you want to hurt yourself or someone else? Patient reports no desire to harm self or others. Initial Sepsis Screen: Does the patient meet any 2 criteria? No. Patient's initial sepsis screen is negative. Does the patient have a suspected source of infection? No. Patient's initial sepsis screen is negative. Care prior to arrival: None. 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 - Coronavirus screen:: The patient has NOT traveled to [place], [place], or [place] in the past 14 days. Proceed with normal triage process as indicated. - Social history:: Smoking status: Patient denies any tobacco usage or history of. - Ebola Screening: : Patient negative for fever greater than or equal to 101.5 degrees Fahrenheit, and additional compatible Ebola Virus Disease symptoms Patient denies exposure to infectious person Patient denies travel to an Ebola-affected area in the 21 days before illness onset No symptoms or risks identified at this time. Screenin:02 Abuse screen: Denies threats or abuse. Denies injuries from another. Nutritional ca1 screening: No deficits noted. Tuberculosis screening: No symptoms or risk factors identified. Fall Risk None identified. Assessment: 10:02 General: Appears in no apparent distress. comfortable, Behavior is calm, cooperative, ca1 appropriate for age. Pain: Complains of pain in right lower quadrant and left lower quadrant Pain currently is 6 out of 10 on a pain scale. Neuro: Level of Consciousness is awake, alert, obeys commands, Oriented to person, place, time, situation. Cardiovascular: Heart tones S1 S2 present Capillary refill < 3 seconds Patient's skin is warm and dry. Respiratory: Airway is patent Respiratory effort is even, unlabored, Respiratory pattern is regular, symmetrical. GI: Abdomen is round non-distended, Bowel sounds present X 4 quads. GI: Reports constipation. : No signs and/or symptoms were reported regarding the genitourinary system. EENT: No signs and/or symptoms were reported regarding the EENT system. Derm: Skin is intact, is healthy with good turgor, Skin is pink, warm \T\ dry. Musculoskeletal: Circulation, motion, and sensation intact. Capillary refill < 3 seconds, Range of motion: intact in all extremities. 11:00 Reassessment: Patient appears in no apparent distress at this time. Patient is alert, ca1 oriented x 3, equal unlabored respirations, skin warm/dry/pink. Vital Signs: 09:19 BP 104 / 65; Pulse 74; Resp 16; Temp 97.7; Pulse Ox 100% on R/A; Weight 56.7 kg; Pain iw 4/10; 10:08 BP 112 / 77; Pulse 78; Resp 17 S; Pulse Ox 99% on R/A; ca1 11:00 BP 107 / 70; Pulse 72; Resp 19 S; Pulse Ox 100% on R/A; ca1 ED Course: 09:00 Patient arrived in ED. mr 09:18 Triage completed. iw 09:50 Kanwal Lara, LUIS MANUEL is Primary Nurse. ca1 09:56 Berny Loya MD is Attending Physician. kdr 10:02 Patient has correct armband on for positive identification. Bed in low position. Call ca1 light in reach. Side rails up X 1. Pulse ox on. NIBP on. Warm blanket given. 10:02 No provider procedures requiring assistance completed. ca1 10:03 Arm band placed on. ca1 11:10 Patient did not have IV access during this emergency room visit. ca1 Administered Medications: No medications were administered Outcome: 10:17 Discharge ordered by . kdr 11:10 Discharged to home ambulatory. ca1 11:10 Condition: stable 11:10 Discharge instructions given to patient, Instructed on discharge instructions, follow up and referral plans. medication usage, Demonstrated understanding of instructions, follow-up care, medications, Prescriptions given X 1. 11:11 Patient left the ED. ca1 Signatures: Berny Loya MD MD [facility] Thomas Pamela mr Crissy Ceja RN RN iw Kanwal Lara RN RN ca1
[2019-12-20 11:19] VITALS: TEMP 97.7
[2019-12-20 11:21] VITALS: BP 107/70; O2SAT 100
== END 2019-12-20 11:11 | disposition home or self-care (01) ==
LOC: ER 08:57
DX: K59.00 Constipation, unspecified (principal)
CPT/HCPCS: 99283